=== PATIENT | male | born 1950 | race Caucasian/White ===

== ENCOUNTER → 2017-11-12 14:41 | Outpatient (CLI) | payer OTHER, SELFPAY ==
[2017-11-12 15:42] LABS: Add Manual Diff / Slide Review NO; Basophils Percent Auto 1.4 % (0-2); Eosinophils Percent Auto 7.2 % (2-4); Hematocrit 35.1 % (41-53); Hemoglobin 11.5 g/dL (13.5-17.5); Lymphocytes Percent Auto 29.8 % (25-40); Mean Corpuscular HGB Conc 32.7 % (30-36); Mean Corpuscular Hemoglobin 25.1 PG (26-34); Mean Corpuscular Volume 76.5 fL (80-100); Monocytes Percent Auto 8.5 % (3-14); Neutrophils Absolute Auto 2400 /uL (3000-5900); Neutrophils Percent Auto 53.1 % (50-75); Platelet Count 249 X10^3/uL (150-400); Red Blood Cell Count 4.59 X10^6/uL (4.5-5.9); Red Cell Distribution Width 14.1 % (11.6-14.8); White Blood Cell Count 4.6 X10^3/uL (4.5-11.0)
[2017-11-12 16:07] LABS: Alanine Aminotransferase 30 IU/L (21-72); Albumin 4.4 g/dL (3.5-5.0); Albumin Globulin Ratio 1.5 (1.0-2.8); Alkaline Phosphatase 74 U/L (38-126); Aspartate Aminotransferase 38 IU/L (17-59); BUN Creatinine Ratio 15.9 (6-22); Bilirubin Total 0.3 mg/dL (0.2-1.3); Blood Urea Nitrogen 27 mg/dL (9-20); Calcium 9.8 mg/dL (8.4-10.2); Carbon Dioxide 29 mmol/L (22-32); Chloride 102 mmol/L (98-107); Cholesterol 174 mg/dL (140-199); Estimated Glomerular Filt Rate 40.5 mL/min (>60); Glucose 88 mg/dL (80-110); HDL Cholesterol 43 mg/dL (40-60); HEMOLYSIS < 15 (0-50); LDL Cholesterol Calculated 84 mg/dL (<100); Potassium 5.2 mmol/L (3.4-5.1); Sodium 142 mmol/L (137-145); Total Protein 7.4 g/dL (6.3-8.2); Triglycerides 234 mg/dL (35-150)
[2017-11-12 16:38] LABS: Ferritin 6.2 ng/mL (17.9-464)
== END ==
PROVIDERS: PCP Family Medicine; Visit Provider Internal Medicine
DX: I10 Essential (primary) hypertension (principal); E78.2 Mixed hyperlipidemia
CPT/HCPCS: 36415; 80053; 80061; 82728; 85025

== ENCOUNTER → 2017-12-10 09:55 | Outpatient (CLI) | payer OTHER, SELFPAY ==
[2017-12-10 11:31] LABS: BUN Creatinine Ratio 18.6 (6-22); Blood Urea Nitrogen 26 mg/dL (9-20); Calcium 10.5 mg/dL (8.4-10.2); Carbon Dioxide 31 mmol/L (22-32); Chloride 95 mmol/L (98-107); Estimated Glomerular Filt Rate 50.7 mL/min (>60); Glucose 98 mg/dL (80-110); HEMOLYSIS < 15 (0-50); Potassium 4.2 mmol/L (3.4-5.1); Sodium 137 mmol/L (137-145)
== END ==
PROVIDERS: PCP Family Medicine; Visit Provider Internal Medicine
DX: N18.9 Chronic kidney disease, unspecified (principal); I10 Essential (primary) hypertension; M10.9 Gout, unspecified
CPT/HCPCS: 36415; 80048; 84550

== ENCOUNTER → 2017-12-20 09:25 | Outpatient (CLI) | payer OTHER, SELFPAY ==
--- NOTE | 2017-12-20 09:27 | DI.US.S_ITS ---
PROCEDURE: US RENAL COMPLETE INDICATIONS: chronic kidney disease TECHNIQUE: Real-time scanning was performed of the kidneys and bladder, with image documentation. COMPARISON: None. FINDINGS: Kidneys: Right kidney measures 14.2 cm long with cortical thickness of 2.1 cm. Right kidney demonstrates normal echotexture without hydronephrosis. Left kidney measures 15.6 cm long, demonstrating severe hydronephrosis. There is severe cortical thinning of the left kidney measuring 0.3 cm. No suspicious solid mass lesions. Bladder: Pre-void bladder volume is 1703 mL. Post-void residual is 1067 mL. Pre-void images demonstrate no intraluminal masses or stones. On pre-void images, neither ureteral jets are noted with color Doppler interrogation. (Of note, ureteral jets may not be detectable in up to 25% of cases due to insufficient differences in specific gravity between ureteral and bladder urine). Miscellaneous: No free pelvic fluid. IMPRESSION: 1. Severe left hydronephrosis. There is marked left renal cortical thinning suggesting chronic obstructive nephropathy. Recommend clinical correlation. Comparison to outside exams, if available, would be helpful. 2. Normal right kidney. 3. 1067 mL post void residual in urinary bladder. Dictated by: Tiffany Temple M.D. on 12/20/2017 at 10:34 Approved by: Tiffany Temple M.D. on 12/20/2017 at 10:39
== END ==
PROVIDERS: PCP Family Medicine; Visit Provider Internal Medicine
DX: N18.9 Chronic kidney disease, unspecified (principal); N13.30 Unspecified hydronephrosis
CPT/HCPCS: 76770

== ENCOUNTER 2017-12-20 12:18 | Emergency (ER) | payer OTHER, SELFPAY ==
[2017-12-20 12:26] VITALS: BP 186/73; PULSE 61; RESP 14; O2SAT 99; BMI 37.8
--- NOTE | 2017-12-20 12:33 | ED.MALEGU ---
HPI - Male Genitourinary General Chief complaint: Urogenital-Male Stated complaint: SENT FOR A CATHETER Time Seen by Provider: 12/20/17 12:30 Source: patient Mode of arrival: ambulatory Limitations: no limitations History of Present Illness HPI Narrative: Patient is a 67-year-old male sent over from his primary care doctor's office for evaluation of urinary retention. Patient states that he has been followed by his primary doctor for any increase in his creatinine. He had a renal and bladder ultrasound done today which was concerning for a obstruction and also left-sided hydro. Patient states that he feels like he empties his bladder. He does urinate frequently. He states this is worse when he lays down. No fevers. No dysuria. No back pain. Never had a kidney stone before. No prostate issues. Is on Flomax which he states did help his symptoms somewhat he has been on this for some time now. Related Data Home Medications Medication Instructions Recorded Confirmed prednisone 20 mg PO DAILY PRN 12/20/17 12/20/17 Previous Rx's Medication Instructions Recorded oxiconazole [Oxistat] 1 bharath TP BID #60 gm 03/07/16 atorvastatin [Lipitor] 80 mg PO HS #90 tab 03/29/17 gemfibrozil 600 mg PO BID #180 tab 03/29/17 allopurinol 100 mg tablet 100 mg PO .daily #60 tab 12/10/17 amlodipine 5 mg tablet 5 mg PO DAILY #60 tab 12/20/17 tamsulosin 0.4 mg capsule 0.4 mg PO BID #60 cap 12/20/17 Allergies Allergy/AdvReac Type Severity Reaction Status Date / Time No Known Drug Allergies Allergy Verified 12/20/17 11:18 Review of Systems Constitutional Denies fever(s) and Denies headache(s) ENT Ears, Nose, Mouth, and Throat: Denies headache(s) Cardiovascular Denies chest pain and Denies dyspnea Respiratory Denies dyspnea Gastrointestinal Gastrointestinal: Denies abdominal pain, Denies change in stool character, Denies diarrhea, Denies nausea and Denies vomiting Genitourinary Denies hematuria, Denies difficulty urinating, Denies genital lesions, Denies dysuria, Denies scrotal swelling, Denies testicular pain, Reports urinary frequency and Denies urinary incontinence Musculoskeletal Denies abnormal gait, Denies back pain, Denies myalgias and Denies arthralgias Integumentary/Breasts Denies pruritus and Denies rash Neurologic Denies abnormal gait, Denies confusion and Denies headache(s) Psychiatric Denies confusion Hematologic/Lymphatic Denies easy bleeding and Denies easy bruising [facility] Medical History Gout (Chronic ~1994) HTN (hypertension) (Chronic) Surgical History Anesthesia (Resolved) Meniscus degeneration (Resolved) History of carpal tunnel repair Status post hemorrhoidectomy Status post rotator cuff repair Family History Father Heart disease Hypertension Diabetes mellitus Grandfather Heart disease Grandfather Heart disease Grandmother No problems noted. Mother Cancer Grandmother No problems noted. Sister No problems noted. Social History marital status: household members: spouse Smoking Status: Former smoker alcohol intake: current substance use type: does not use Exam Initial Vital Signs Initial Vital Signs: Vital Signs Pulse Rate 61 12/20/17 12:26 Respiratory Rate 14 12/20/17 12:26 Blood Pressure 186/73 H 12/20/17 12:26 Pulse Oximetry 99 12/20/17 12:26 Const General: cooperative, healthy appearing, comfortable, well developed and No acute distress Orientation: alert, awake and oriented x3 HENMT Head: normal to inspection and normocephalic Resp Effort & Inspection: normal respiratory effort GI Inspection: non-distended Palpation: soft, No firm and No tender Back/Spine/Pelvis Back: No CVA tenderness Skin Lesions: no lesions Rashes: no rashes Neuro General: alert, awake and oriented x3 Extrem General: normal to inspection and capillary refill normal Psych Appearance: grossly normal and well kempt Course Orders Ordered: ED Orders 12/20/17 12:40 Urinalysis and Microscopic Stat 12/20/17 13:03 Basic Metabolic Panel Stat Complete Blood Count AUTO DIFF Stat Vital Signs - 8 hr 12/20/17 12:26 12/20/17 13:59 Pulse Rate 61 65 Respiratory Rate 14 14 Blood Pressure 186/73 H Blood Pressure [Left Arm] 147/80 H Pulse Oximetry 99 100 MDM - Male Genitourinary Lab Data Attestation: I reviewed the patient's lab results. Result diagrams: 12/20/17 13:03 12/20/17 13:03 Lab Results 12/20/17 12/20/17 12/20/17 Range/Units 12:40 13:03 13:03 WBC 4.1 L (4.5-11.0) X10^3/uL RBC 4.84 (4.5-5.9) X10^6/uL Hgb 11.9 L (13.5-17.5) g/dL Hct 35.8 L (41-53) % MCV 74.1 L (80-100) fL MCH 24.5 L (26-34) PG MCHC 33.1 (30-36) % RDW 14.2 (11.6-14.8) % Plt Count 259 (150-400) X10^3/uL Neut % (Auto) 57.2 (50-75) % Lymph % (Auto) 26.4 (25-40) % [place] % (Auto) 11.1 (3-14) % Eos % (Auto) 4.2 H (2-4) % Baso % (Auto) 1.1 (0-2) % Neut # (Auto) 2300 L (4860-3973) /uL Sodium 135 L (137-145) mmol/L Potassium 3.4 (3.4-5.1) mmol/L Chloride 94 L (98-107) mmol/L Carbon Dioxide 30 (22-32) mmol/L BUN 18 (9-20) mg/dL Creatinine 1.20 (0.66-1.25) mg/dL Estimated GFR > 60.0 (>60) mL/min BUN/Creatinine Ratio 15.0 (6-22) Glucose 93 (80-110) mg/dL Calcium 9.9 (8.4-10.2) mg/dL Urine Color Yellow Urine Appearance Clear Urine pH 6.0 (4.5-8.0) Ur Specific [place] <=1.005 (1.000-1.035) Urine Protein Negative (Negative) Urine Glucose (UA) Negative (Normal) g/dL Urine Ketones Negative (NEGATIVE) Urine Occult Blood Negative (Negative) Urine Nitrate Negative (Negative) Urine Bilirubin Negative (NEGATIVE) Urine Urobilinogen 0.2 (0.2) E.U./dL Ur Leukocyte Esterase Negative (NEGATIVE) Urine RBC None seen (0-5/HPF) Urine WBC None seen (0-5/HPF) Ur Squamous Epith Cells 0-1 /hpf Amorphous Sediment 1+ Urine Bacteria None seen (None) Ur Culture Indicated? Cult not indicated Micro UA Comment Not Reportable MDM Narrative Medical decision making narrative: Patient had a ultrasound performed earlier today that was ordered by his primary doctor. Review of those results show a left-sided hydronephrosis and a postvoid residual of greater than 1 L. patient had a Vergara placed prior to my evaluation with return of approximately 2.5 L of urine. No signs of an infection. His creatinine was 1.2 today which is improved. Patient states that his abdomen does feel less distended. No indication for antibiotics currently. Sent home with a leg bag. Patient is currently on Flomax. Informed him that he needed to contact his primary doctor to discuss the follow-up with Urology. Patient was given return precautions. He expressed understanding and agreement with plan. Discharge Plan Departure Patient Disposition: Home Clinical Impression: Urinary retention Discharge Date/Time: 12/20/17 14:12 Interventions: ED Discharge Assessment Last Done: 12/20/17 14:11 Instructions: How to Care for Your Vergara Catheter -- Male, DI for Urinary Retention in Men Activity Restrictions/Additional Instructions: Keep the Vergara in and take care of it like you were instructed to here in the emergency department. Recommend that you contact your primary care doctor upon discharge to discuss follow-up with Urology. He did have a urinalysis done today which could be consistent with a urinary tract infection however I feel that waiting until the culture is resulted until treating this is warranted. You will receive a call from our department if the culture is positive. Normally takes 2-3 days to get this result back. Return to the emergency department for any new or worsening symptoms. Continue all of your medications as directed. Prescriptions: No Action oxiconazole [Oxistat] 1 % cream 1 bharath TP BID Qty: 60 RF: 3 gemfibrozil 600 MG tablet 600 mg PO BID Qty: 180 RF: 3 atorvastatin [Lipitor] 80 MG tablet 80 mg PO HS Qty: 90 RF: 3 allopurinol 100 mg tablet 100 mg PO .daily Qty: 60 RF: 3 amlodipine 5 mg tablet 5 mg PO DAILY Qty: 60 RF: 0 tamsulosin [Flomax] 0.4 mg capsule 0.4 mg PO BID Qty: 60 RF: 0 prednisone 20 mg tablet 20 mg PO DAILY PRN (Reason: gout flare) RF: 0
[2017-12-20 12:51] LABS: Bacteria Urine None Seen; RBC Urine None Seen (0-5/HPF); WBC Urine None Seen (0-5/HPF)
[2017-12-20 12:53] LABS: Appearance Urine UA CLEAR; Bilirubin Urine UA NEGATIVE (NEGATIVE); Color Urine UA YELLOW; Glucose Urine UA NEGATIVE (Normal); Ketones Urine UA NEGATIVE (NEGATIVE); Leukocyte Esterase Urine UA NEGATIVE (NEGATIVE); Nitrite Urine UA Negative (Negative); Occult Blood Urine UA NEGATIVE (Negative); Protein Urine UA NEGATIVE (Negative); Specific Gravity Urine UA <=1.005 (1.000-1.035); Urobilinogen Urine UA 0.2 E.U./dL (0.2)
[2017-12-20 13:01] LABS: Amorphous Sediment Urine 1+; Culture Indicated Urine Cult Not Indicated; Squamous Epithelial Cell Urine 0-1 /HPF
--- NOTE | 2017-12-20 13:07 | PC.NURSE ---
Pt states he was seeing his provider for gout. Has h/o increased uric acid and decreasing renal functions so (by chance) provider had scheduled an abd / renal ultrasound. During that ultrasound he was found to have left hydro and significant urinary retention. Sent to ED for further work up. States he has felt urgency and inability to void x 1 year. Denies all pain.
[2017-12-20 13:11] LABS: Add Manual Diff / Slide Review NO; Basophils Percent Auto 1.1 % (0-2); Eosinophils Percent Auto 4.2 % (2-4); Hematocrit 35.8 % (41-53); Hemoglobin 11.9 g/dL (13.5-17.5); Lymphocytes Percent Auto 26.4 % (25-40); Mean Corpuscular HGB Conc 33.1 % (30-36); Mean Corpuscular Hemoglobin 24.5 PG (26-34); Mean Corpuscular Volume 74.1 fL (80-100); Monocytes Percent Auto 11.1 % (3-14); Neutrophils Absolute Auto 2300 /uL (3000-5900); Neutrophils Percent Auto 57.2 % (50-75); Platelet Count 259 X10^3/uL (150-400); Red Blood Cell Count 4.84 X10^6/uL (4.5-5.9); Red Cell Distribution Width 14.2 % (11.6-14.8); White Blood Cell Count 4.1 X10^3/uL (4.5-11.0)
[2017-12-20 13:25] LABS: Blood Urea Nitrogen 18 mg/dL (9-20); Calcium 9.9 mg/dL (8.4-10.2); Carbon Dioxide 30 mmol/L (22-32); Chloride 94 mmol/L (98-107); Estimated Glomerular Filt Rate > 60.0 mL/min (>60); Glucose 93 mg/dL (80-110); HEMOLYSIS < 15 (0-50); Potassium 3.4 mmol/L (3.4-5.1); Sodium 135 mmol/L (137-145)
[2017-12-20 13:59] VITALS: BP 147/80; PULSE 65; RESP 14; O2SAT 100
== END 2017-12-20 14:12 | disposition home or self-care (01) ==
PROVIDERS: Emergency Provider Emergency Medicine; PCP Family Medicine
DX: R33.9 Retention of urine, unspecified (principal)
CPT/HCPCS: 36591; 51701; 80048; 81001; 85025; 99283

== ENCOUNTER 2017-12-21 10:40 | Day surgery (SDC) | payer OTHER, SELFPAY ==
--- NOTE | 2017-12-21 | PATH_ITS ---
[facility] Accession Number: [id number] . 01 Material submitted: . GE JUNCTION . 02 Diagnosis: Gastroesophageal Junction, Biopsy: Squamocolumnar junctional mucosa with no diagnostic abnormality. Negative for specialized intestinal metaplasia, dysplasia or malignancy. [facility]/12/25/2017 . 02 Electronically signed: . Austin Burrell MD, PhD, Pathologist NPI- [id number] . 01 Gross description: . GE JUNCTION: Received in formalin are 4 fragment(s) of darling, soft tissue measuring 0.9 x 0.2 x 0.1 cm to 0.2 x 0.2 x 0.1 cm submitted entirely in 1 cassette(s) /TRC /TRC . 02 Pathologist provided ICD-10: R10.13 . 02 CPT . 915086 Performed at: 01 [facility] [address] [id number] MD Lupillo Pierre MD Phone: [phone] Performed at: 02 [facility] [id number] [place], [place] [id number] MD Ponce Saunders MD Phone: [phone]
[2017-12-21] MEDS: TETRACAINE/BENZOCAINE/BUTAMBEN (CETACAINE) BOTTLE 1 SPRAY TOP (01:18)
[2017-12-21 10:58] VITALS: BMI 36.5
[2017-12-21 11:05] VITALS: BP 147/81; PULSE 71; RESP 15; TEMP 37.1; O2SAT 98
[2017-12-21] MEDS: SODIUM CHLORIDE 0.9% 1,000 ML 200 ML IV (11:15)
--- NOTE | 2017-12-21 11:31 | SUR.PREOP ---
Pt ready for Endo Suite at this time. substance addiction coordinator database has been completed, consent has been signed, PIV in place with NS at TKO, and family is at bedside. Pt has had difficulty voiding, clark leg bag was placed yesterday and leg back is attached to right thigh. Pt will be keeping in place until he sees a urologist. Pt ready for OR at this time.
--- NOTE | 2017-12-21 11:46 | PM.PREOP ---
Pre-operative Note Interval Note Pre-op Check: Yes History & Physical Reviewed by Physician and Yes Exam Performed Changes: No ASA Class (for procedural sedation): III
--- NOTE | 2017-12-21 11:47 | PM.PREOP ---
Pre-operative Note Interval Note Pre-op Check: Yes History & Physical Reviewed by Physician and Yes Exam Performed Changes: No ASA Class (for procedural sedation): III
[2017-12-21] MEDS: LIDOCAINE 4% SOLN 50 ML 20 ML TOP (11:59)
[2017-12-21] MEDS: fentaNYL 250 MCG/5 ML INJ IV (12:08)
[2017-12-21] MEDS: MIDAZOLAM 5 MG/5 ML VIAL IV (12:09)
--- NOTE | 2017-12-21 12:32 | SUR.OPER ---
Addendum entered by Gerardo Mcdonald R.N. 12/21/17 12:37: Original Note: incomplete colonoscopy, reached the hepatic flexure
[2017-12-21 12:37] VITALS: BP 124/78; PULSE 67; RESP 12; TEMP 36.8; O2SAT 97
--- NOTE | 2017-12-21 12:39 | P.OP.ENDO_ITS ---
Operative Date/Time/Diagnoses Date of procedure: 12/21/17 Time of procedure: 12:32 Pre-op diagnosis: Anemia. Cause unclear. Post-op diagnosis: same (Possible mild inflammation of the GE junction. Incomplete colonoscopic exam. Reached the hepatic flexure.) Procedure & Clinicians Study performed: EGD with cold biopsy. Colonoscopy to the hepatic flexure. Incomplete exam. Same procedure as scheduled: Yes Indications: Determine cause of anemia Surgeon: Matthew Bansal Procedure Notes SCOAP/Timeout: Performed Procedure in detail: The patient had topical anesthetic applied to oropharynx. She was placed in left lateral decubitus position and underwent IV sedation directed by the surgeon consisting of fentanyl and Versed. A bite block was inserted and the scope was advanced through it into the esophagus. The esophagus was unremarkable. GE junction was noted at 40 cm from the incisors. There was some slight inflammation here.. The stomach insufflated well. There were no lesions seen in the body, antrum or at the incisura. The pyloric channel was [widely patent without edema]. The duodenum was unremarkable to the 4th part. The scope was brought back into the stomach and retroflexed. The proximal stomach was normal in appearance. There was no hiatal hernia seen from below.. The scope was straightened and brought out through the esophagus again. Random biopsy were taken at the GE junction. The scope was removed and the patient tolerated the procedure well. The patient was repositioned. The patient was placed in the left lateral decubitus position and underwent IV sedation directed by the surgeon consisting of fentanyl and Versed. Digital exam was[remarkable for the inability to feel as prostate well.]. The scope was inserted and advanced through the rectum into the sigmoid, descending, and transverse colon.[At somewhere near the hepatic flexure I simply ran out of scope. I withdrew the scope inserted a stiffener repositioned the patient apply pressure but still could never get beyond this point. I would run out of scope. After spending about 10 min at this 1 point and trying to get beyond it I decided to abandon the procedure. I ran out of options to get the scope to advance further]. The scope was gradually brought out. No Polyps were found. The scope ultimately slowly brought through the rectum. The appearance was[ normal]. The scope was removed and the patient tolerated the procedure well Scope withdrawal time: Not applicable Sedation minutes: 31 Findings: other findings (Incomplete exam) Specimen(s): none sent Complications: other (Cause of anemia not found.) Recommendations: Other recommendation (Colonoscopy to evaluate the remainder of the right colon.) Plan for aftercare: Follow-up with primary care provider and Urology etc Follow up: as needed Disposition: PACU
[2017-12-21 12:42] VITALS: BP 143/75; PULSE 76; RESP 12; O2SAT 98
[2017-12-21 12:47] VITALS: BP 129/76; PULSE 68; RESP 12; O2SAT 97
[2017-12-21 12:53] VITALS: BP 136/79; PULSE 64; RESP 12; O2SAT 97
== END 2017-12-21 13:13 | disposition home or self-care (01) ==
PROVIDERS: PCP Family Medicine; Visit Provider Specialist
PROC: 0DJ08ZZ Inspection of Upper Intestinal Tract, Via Natural or Artificial Opening Endoscopic (ICD-10-PCS; CPT 43235; principal; 2017-12-21 11:45)
PROC: 0DJD8ZZ Inspection of Lower Intestinal Tract, Via Natural or Artificial Opening Endoscopic (ICD-10-PCS; CPT 45378; 2017-12-21 11:45)
DX: D50.9 Iron deficiency anemia, unspecified (principal); Z86.010 Personal history of colon polyps; R33.9 Retention of urine, unspecified
CPT/HCPCS: 43239; 45378; 99152; 99153; J2250; J3010

== ENCOUNTER → 2018-01-03 09:42 | Outpatient (CLI) | payer OTHER, SELFPAY ==
--- NOTE | 2018-01-03 09:46 | DI.RAD.S_ITS ---
PROCEDURE: FL BARIUM ENEMA W AIR CONTRAST INDICATIONS: Anemia. Incomplete colonoscopy. Evaluate right colon COMPARISON: None. FINDINGS: KUB: Pre-procedural animal cruelty investigation supervisor film demonstrates a normal bowel gas pattern. No suspicious abdominal calcifications. Visualized solid organ contours are normal in size. No suspicious bony lesions. Colon: There is adequate air-contrast opacification from the rectum to the cecum. No strictures, ulcers, polyps, or masses are seen. Haustral folds are normal in thickness throughout. No diverticula. IMPRESSION: No mass or malignant appearing stricture is identified. No diverticulosis is found. Relatively prominently elongated colon, but the procedure allow visualization into the cecum and no underlying infection or neoplasm is suspected. Dictated by: Elkin Vo M.D. on 01/03/2018 at 12:08 Approved by: Elkin Vo M.D. on 01/03/2018 at 12:10
== END ==
PROVIDERS: PCP Family Medicine; Visit Provider Specialist
DX: D50.9 Iron deficiency anemia, unspecified (principal)
CPT/HCPCS: 74280

== ENCOUNTER → 2018-01-07 10:27 | Outpatient (CLI) | payer OTHER, SELFPAY ==
[2018-01-07 11:36] LABS: BUN Creatinine Ratio 14.2 (6-22); Blood Urea Nitrogen 17 mg/dL (9-20); Calcium 9.7 mg/dL (8.4-10.2); Carbon Dioxide 29 mmol/L (22-32); Chloride 101 mmol/L (98-107); Estimated Glomerular Filt Rate > 60.0 mL/min (>60); Glucose 89 mg/dL (80-110); HEMOLYSIS < 15 (0-50); Potassium 4.4 mmol/L (3.4-5.1); Sodium 141 mmol/L (137-145)
[2018-01-07 12:10] LABS: Uric Acid 7.8 mg/dL (3.5-8.5)
== END ==
PROVIDERS: PCP Family Medicine; Visit Provider Internal Medicine
DX: I10 Essential (primary) hypertension (principal); M10.9 Gout, unspecified
CPT/HCPCS: 36415; 80048; 84550

== ENCOUNTER → 2018-04-25 08:51 | Outpatient (CLI) | payer OTHER, SELFPAY ==
[2018-04-25 10:02] LABS: BUN Creatinine Ratio 14.3 (6-22); Blood Urea Nitrogen 20 mg/dL (9-20); Calcium 9.9 mg/dL (8.4-10.2); Carbon Dioxide 28 mmol/L (22-32); Chloride 102 mmol/L (98-107); Estimated Glomerular Filt Rate 50.5 mL/min (>60); Glucose 93 mg/dL (80-110); HEMOLYSIS < 15 (0-50); Potassium 4.6 mmol/L (3.4-5.1); Sodium 143 mmol/L (137-145); Triglycerides 249 mg/dL (35-150); Uric Acid 6.1 mg/dL (3.5-8.5)
== END ==
PROVIDERS: Internal Medicine; PCP Family Medicine; Visit Provider Family Medicine
DX: E78.1 Pure hyperglyceridemia (principal); I10 Essential (primary) hypertension; M10.9 Gout, unspecified
CPT/HCPCS: 36415; 80048; 84478; 84550

== ENCOUNTER → 2018-07-05 13:45 | Outpatient (CLI) | payer OTHER, SELFPAY ==
--- NOTE | 2018-07-05 13:47 | DI.US.S_ITS ---
PROCEDURE: US ABDOMEN LIMITED INDICATIONS: intermittrent LLQ pain TECHNIQUE: Real-time focused scanning was performed of the abdomen, with image documentation. COMPARISON: None. FINDINGS: Evaluation of the left lower quadrant of the abdomen/pelvis demonstrates no hernia or other sonographic abnormality. No inguinal hernia identified with Valsalva and cough maneuvers. No soft tissue edema or abscess identified. IMPRESSION: No sonographic abnormality identified in the left lower quadrant of the abdomen/pelvis Dictated by: Yvonne Baird MD, PhD on 07/08/2018 at 9:34 Approved by: Yvonne Baird MD, PhD on 07/08/2018 at 9:35
== END ==
PROVIDERS: PCP Family Medicine; Visit Provider Family Medicine
DX: R10.32 Left lower quadrant pain (principal)
CPT/HCPCS: 76700

== ENCOUNTER → 2018-11-08 10:44 | Outpatient (CLI) | payer OTHER, SELFPAY ==
[2018-11-08 12:41] LABS: Alanine Aminotransferase 49 IU/L (21-72); Albumin 4.7 g/dL (3.5-5.0); Albumin Globulin Ratio 1.7 (1.0-2.8); Alkaline Phosphatase 73 U/L (38-126); Aspartate Aminotransferase 38 IU/L (17-59); Bilirubin Total 0.7 mg/dL (0.2-1.3); Blood Urea Nitrogen 21 mg/dL (9-20); Carbon Dioxide 28 mmol/L (22-32); Chloride 97 mmol/L (98-107); Estimated Glomerular Filt Rate 46.7 mL/min (>60); Globulin 2.8 g/dL (1.7-4.1); Glucose 86 mg/dL (80-110); HEMOLYSIS < 15 (0-50); Potassium 4.9 mmol/L (3.4-5.1); Sodium 136 mmol/L (137-145); Total Protein 7.5 g/dL (6.3-8.2)
== END ==
PROVIDERS: Family Provider Family Medicine; PCP Family Medicine; Visit Provider Hospitalist
DX: R10.9 Unspecified abdominal pain (principal)
CPT/HCPCS: 36415; 80053

== ENCOUNTER → 2018-12-18 07:12 | Outpatient (CLI) | payer OTHER, SELFPAY ==
[2018-12-18 08:19] LABS: Add Manual Diff / Slide Review NO; Basophils Absolute Auto 0 /uL (0-100); Basophils Percent Auto 1.2 % (0-2); Eosinophils Absolute Auto 300 /uL (0-450); Eosinophils Percent Auto 6.6 % (2-4); Hematocrit 41.8 % (41-53); Hemoglobin 13.9 g/dL (13.5-17.5); Lymphocytes Absolute Auto 1300 /uL (1100-4500); Lymphocytes Percent Auto 30.9 % (25-40); Mean Corpuscular HGB Conc 33.3 % (30-36); Mean Corpuscular Hemoglobin 27.1 PG (26-34); Mean Corpuscular Volume 81.3 fL (80-100); Monocytes Absolute Auto 400 /uL (0-900); Monocytes Percent Auto 9.8 % (3-14); Neutrophils Absolute Auto 2100 /uL (1500-7000); Neutrophils Percent Auto 51.5 % (50-75); Platelet Count 201 X10^3/uL (150-400); Red Blood Cell Count 5.14 X10^6/uL (4.5-5.9); Red Cell Distribution Width 16.1 % (11.6-14.8); White Blood Cell Count 4.1 X10^3/uL (4.5-11.0)
[2018-12-18 08:29] LABS: Alanine Aminotransferase 66 IU/L (21-72); Albumin 4.7 g/dL (3.5-5.0); Albumin Globulin Ratio 1.5 (1.0-2.8); Alkaline Phosphatase 63 U/L (38-126); Aspartate Aminotransferase 52 IU/L (17-59); BUN Creatinine Ratio 15.6 (6-22); Bilirubin Total 0.6 mg/dL (0.2-1.3); Blood Urea Nitrogen 25 mg/dL (9-20); Calcium 9.9 mg/dL (8.4-10.2); Carbon Dioxide 28 mmol/L (22-32); Chloride 99 mmol/L (98-107); Cholesterol 177 mg/dL (140-199); Estimated Glomerular Filt Rate 43.3 mL/min (>60); Globulin 3.2 g/dL (1.7-4.1); Glucose 99 mg/dL (80-110); HDL Cholesterol 37 mg/dL (40-60); HEMOLYSIS 17 (0-50); LDL Cholesterol Calculated 81 mg/dL (<100); Potassium 4.2 mmol/L (3.4-5.1); Sodium 138 mmol/L (137-145); Total Protein 7.9 g/dL (6.3-8.2); Triglycerides 294 mg/dL (35-150); Uric Acid 7.5 mg/dL (3.5-8.5)
[2018-12-18 08:58] LABS: Prostate Specific Antigen Scrn 0.092 ng/mL (0.1-4.0)
[2018-12-18 09:09] LABS: Thyroid Stimulating Hormone 1.78 uIU/mL (0.47-4.68)
== END ==
PROVIDERS: Family Provider Family Medicine; PCP Family Medicine; Visit Provider Family Medicine
DX: E78.1 Pure hyperglyceridemia (principal)
CPT/HCPCS: 36415; 80053; 80061; 84443; 84550; 85025; G0103

== ENCOUNTER → 2019-01-20 10:24 | Outpatient (CLI) | payer OTHER, SELFPAY ==
--- NOTE | 2019-01-20 10:28 | DI.RAD.S_ITS ---
PROCEDURE: XR HIP W PEL IF DONE LT MIN 4V INDICATIONS: deep hip and groin pain TECHNIQUE: AP pelvis with lateral view(s) of the bilateral hip(s). COMPARISON: None. FINDINGS: Bones: No fractures or dislocations. Pelvic ring appears intact. Mild bilateral hip joint osteoarthritic changes are seen. No evidence of avascular necrosis. No suspicious bony lesions. Soft tissues: The visualized bowel gas pattern is normal. No suspicious soft tissue calcifications. 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 Dictated by: Micheal Fraga M.D. on 01/20/2019 at 11:22 Approved by: Micheal Fraga M.D. on 01/20/2019 at 11:23
== END ==
PROVIDERS: Family Provider Family Medicine; PCP Family Medicine; Visit Provider Family Medicine
DX: M25.551 Pain in right hip (principal); M25.552 Pain in left hip; M16.0 Bilateral primary osteoarthritis of hip; R10.30 Lower abdominal pain, unspecified
CPT/HCPCS: 73522

== ENCOUNTER → 2019-01-28 17:33 | Outpatient (CLI) | payer OTHER, SELFPAY ==
--- NOTE | 2019-01-28 17:39 | DI.MRI.S_ITS ---
PROCEDURE: MR HIP LT WO CON INDICATIONS: deep hip pain TECHNIQUE: Noncontrast coronal T1 spin echo and STIR through the bony pelvis. Coronal and axial T2 fast spin echo with fat saturation, sagittal T1 spin echo, and oblique axial T2 fast spin echo with fat saturation through the hip. COMPARISON: None. FINDINGS: Image quality: Excellent. Bones and joints: There is mild symmetric appearing bilateral hip joint osteoarthritis. No fracture or dislocation. No intraosseous lesions. No avascular necrosis of the femoral heads. The visualized lower lumbar spine appears normally aligned. Tendons and ligaments: There is distal left gluteus medius and minimus tendinosis and low-grade partial-thickness tearing at their insertions on greater trochanter, without associated muscle atrophy. The nearby proximal iliotibial band also appears intact. The iliopsoas tendon appears intact, without adjacent bursal fluid collections or evidence for impingement syndrome. The origin of the hamstring tendon is intact at the ischial tuberosity, as well as the associated sacrotuberous ligament. The straight and reflected heads of the rectus femoris muscle origin appear intact, as well as the conjoint tendon. The ligamentum teres appears intact where visualized. Labrum and cartilage: There is signal abnormality and contour irregularity involving superior anterior left labrum concerning for a labral tear. Thinning of articulating cartilage is femoral head is also seen. The alpha angle of the femur is within normal limits at less than 55 degrees. Soft tissues: Visualized muscles demonstrate normal bulk and internal signal. Quadratus femoris muscle demonstrates no internal edema to suggest ischiofemoral impingement. The proximal sciatic neurovascular bundle appears normal adjacent to the hamstring tendons. No free pelvic fluid. Bladder wall thickness is normal. Genitourinary structures and bowel loops appear normal where visualized. IMPRESSION: 1. 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 No fracture or dislocation. No marrow edema. No evidence of avascular necrosis of femoral heads. 2. Distal left gluteus medius and minimus tendinosis and low-grade partial-thickness tear. 3. Suggestion of superior anterior left hip labral tear. Dictated by: Micheal Fraga M.D. on 01/29/2019 at 9:00 Approved by: Micheal Fraga M.D. on 01/29/2019 at 9:15
== END ==
PROVIDERS: Family Provider Family Medicine; PCP Family Medicine; Visit Provider Family Medicine
DX: M25.552 Pain in left hip (principal); M16.0 Bilateral primary osteoarthritis of hip; S76.012A Strain of muscle, fascia and tendon of left hip, initial encounter
CPT/HCPCS: 73721

== ENCOUNTER → 2019-02-04 08:44 | Outpatient (CLI) | payer OTHER, SELFPAY ==
[2019-02-04 09:36] LABS: Erythrocyte Sedimentation Rate 4 MM/HR (0-15)
== END ==
PROVIDERS: PCP Family Medicine; Visit Provider Family Medicine
DX: M35.3 Polymyalgia rheumatica (principal)
CPT/HCPCS: 36415; 85651

== ENCOUNTER 2019-02-06 21:28 | Emergency (ER) | payer OTHER, SELFPAY ==
[2019-02-06 21:37] VITALS: BP 160/97; PULSE 67; RESP 14; TEMP 36.5; O2SAT 97; BMI 36.5
[2019-02-06] MEDS: KETOROLAC 60 MG/2 ML VIAL 30 MG IM (22:38)
--- NOTE | 2019-02-06 23:42 | ED_ITS ---
HPI - Extremity Problem General Chief complaint: Extremity Problem,Nontraumatic Stated complaint: rt hip pain Time Seen by Provider: 02/06/19 23:02 Source: patient Mode of arrival: Ambulatory Limitations: no limitations History of Present Illness HPI Narrative: 68-year-old male comes emergency department with right hip pain. patient has had chronic right hip issues. Patient has had these problems for a little while. He actually see Dr. Razo on Sunday Coretta was evaluated his hip was taken through for range of motion he states that when he came is about 2/3 and when he left his still about a 2/3 and then over the subsequent 48 hours and increasing right hip pain. He states it is hip. It does not seem to be from his back, does not seem to radiate down. If he has taken through range of motion passively by someone else he does really have much pain but if he tries to flex or rotate his hip himself it is painful. Particularly with internal rotation. Her patient states it has been increasing in intensity. He has tried Tylenol with minimal improvement. No fevers, no chills, no chest pain or shortness of breath, no abdominal pain. No rashes or skin changes. He has not appreciated any redness swelling or changes over the hip itself. Patient states maybe a little bit of tingling just adjacent to the hip but nothing extending down the leg. Pain does not extend down the leg. He has not had any skin changes were color changes. He does take medication for gout, hypertension, dyslipidemia and prostate. He has had a TURP. Dr. Razo is his orthopedic surgeon and Dr. Dennison is his primary care. Related Data Home Medications Medication Instructions Recorded Confirmed finasteride 5 mg tablet 5 mg PO DAILY 01/07/18 11/08/18 Previous Rx's Medication Instructions Recorded oxiconazole [Oxistat] 1 bharath TP BID #60 gm 03/07/16 atorvastatin 80 mg tablet 80 mg PO HS #90 tab 05/24/18 tamsulosin 0.4 mg capsule 0.4 mg PO BID #60 cap 10/03/18 allopurinol 300 mg tablet 300 mg PO DAILY #90 tab 01/20/19 fenofibrate 160 mg tablet 160 mg PO DAILY #90 tab 01/20/19 lisinopril 20 mg tablet 20 mg PO DAILY #90 tab 10/03/19 colchicine 0.6 mg capsule 0.6 mg PO BID #180 cap 02/03/19 diazepam [Valium] 2 mg PO TID PRN #10 tab 02/07/19 hydrocodone-acetaminophen [Burbank] 1 tab PO Q6H PRN #10 tab 02/07/19 Allergies Allergy/AdvReac Type Severity Reaction Status Date / Time No Known Drug Allergies Allergy Verified 02/06/19 21:37 Review of Systems Review of Systems ROS Unobtainable: All systems reviewed & are unremarkable except as noted in HPI and below PFSH Medical History Gout (Chronic ~1994) HTN (hypertension) (Chronic) Surgical History Anesthesia (Resolved) History of carpal tunnel repair Meniscus degeneration (Resolved) Status post hemorrhoidectomy Status post rotator cuff repair Family History Father Heart disease Hypertension Diabetes mellitus Grandfather Heart disease Grandfather Heart disease Grandmother No problems noted. Mother Cancer Grandmother No problems noted. Sister No problems noted. Social History marital status: household members: spouse Smoking Status: Former smoker alcohol intake: current substance use type: does not use Family History Father Heart disease Hypertension Diabetes mellitus Grandfather Heart disease Grandfather Heart disease Grandmother No problems noted. Mother Cancer Grandmother No problems noted. Sister No problems noted. Social History marital status: household members: spouse Smoking Status: Former smoker alcohol intake: current substance use type: does not use Exam Narrative Exam Narrative: GENERAL: Alert and oriented x three, obese male in moderate distress. HEENT: Head normocephalic, atraumatic, EOMI, pupils reactive, face symmetric, moist mucous membranes NECK: Supple, full range of motion CARDIOVASCULAR: Regular rate and rhythm without murmurs, rubs or gallops. RESPIRATORY: Breath sounds equal bilaterally, no wheezes rales or rhonchi. ABDOMEN: Soft, nontender. Normoactive bowel sounds all 4 quadrants. No guarding or rebound, rigidity, no mass : No CVA tenderness EXTREMITIES: Normal range of motion, patient does not have pain with passive range of motion of the hip including flexion, internal external rotation. I am not able to reproduce pain with palpation. There is no redness or swelling. patient has 2+ femoral pulse positive pulses bilateral lower extremities. patient has normal coloration of skin. No clubbing or edema. Neurovascularly intact. NEUROLOGICAL: Cranial nerves II through XII grossly intact. Moving all extremities SKIN: Warm, dry, no petechiae, no rashes or lesions. Initial Vital Signs Initial Vital Signs: Vital Signs Temperature 97.7 F 02/06/19 21:37 Pulse Rate 67 02/06/19 21:37 Respiratory Rate 14 02/06/19 21:37 Blood Pressure 160/97 H 02/06/19 21:37 Pulse Oximetry 97 02/06/19 21:37 Course Orders Ordered: ED Orders 02/06/19 23:59 XR hip w pel if done RT 2V Stat Discontinued Medications Hydrocodone Bitart/Acetaminophen (Vicodin Prepack) 1 bottle MISC SEEINSTR ONE Stop: 02/07/19 02:07 Last Admin: 02/07/19 02:11 Dose: 1 bottle Documented by: AUGIEOTEM Diazepam (Valium) 5 mg PO NOW ONE Stop: 02/07/19 00:01 Last Admin: 02/07/19 00:16 Dose: 5 mg Documented by: KBROTEM Hydromorphone HCl (Dilaudid) 0.5 mg IM NOW ONE Stop: 02/07/19 00:29 Last Admin: 02/07/19 00:32 Dose: 0.5 mg Documented by: KBROTEM Ketorolac Tromethamine (Toradol) 30 mg IM NOW ONE Stop: 02/06/19 22:36 Last Admin: 02/06/19 22:38 Dose: 30 mg Documented by: HFARRINGTO Vital Signs Vital signs: Vital Signs - 8 hr 02/07/19 01:55 Pulse Rate 62 Respiratory Rate 15 Blood Pressure [Right Arm] 127/67 Pulse Oximetry [address] [facility] - Extremity (Nontraumatic) Imaging Data Right hip x-ray: My impression: nap, compared with prior from 01/20/[address] [facility] Narrative Medical decision making narrative: Discussed with patient unclear but I suspect that he does have some sort orthopedic issue that is causing his pain. any Sami exam findings of be consistent with gout, septic joint, DVT or arterial issue. His pain is not from his back but is truly seems to be in his hip. He had some improvement with Toradol. Was given a muscle relaxant. Patient had x-ray imaging with seem to exacerbate of symptoms and was given 0.5 of Dilaudid. Patient is much more comfortable on evaluation. Plan for follow-up with primary care. Patient's x-ray does not show any acute changes. Discharge Plan Departure Patient Disposition: Home Clinical Impression: Hip pain, right Discharge Date/Time: 02/07/19 02:01 Instructions: DI for Hip Pain Activity Restrictions/Additional Instructions: Follow-up with Dr. Dennison or Dr. Razo for repeat evaluation and possibly MRI. I would recommend using crutches or a walker. Take medication as prescribed, this medication can make you sleepy do not drive, perform hazardous activities or make any major decisions while taking it. Return to the emergency department for fevers greater than 100.4 F, new swelling, redness or skin changes to the leg or hip, new weakness, numbness, los s of sensation, pale or blue leg or other new or concerning symptoms. Prescriptions: New hydrocodone-acetaminophen [Burbank] 5-325 mg tablet 1 tab PO Q6H PRN (Reason: pain) Qty: 10 RF: 0 diazepam [Valium] 2 mg tablet 2 mg PO TID PRN (Reason: muscle spasm) Qty: 10 RF: 0 No Action oxiconazole [Oxistat] 1 % cream 1 bharath TP BID Qty: 60 RF: 3 atorvastatin [Lipitor] 80 mg tablet 80 mg PO HS Qty: 90 RF: 3 tamsulosin [Flomax] 0.4 mg capsule 0.4 mg PO BID Qty: 60 RF: 3 allopurinol 300 mg tablet 300 mg PO DAILY Qty: 90 RF: 1 fenofibrate 160 mg tablet 160 mg PO DAILY Qty: 90 RF: 1 lisinopril 20 mg tablet 20 mg PO DAILY Qty: 90 RF: 2 colchicine 0.6 mg capsule 0.6 mg PO BID Qty: 180 RF: 1 finasteride 5 mg tablet 5 mg PO DAILY RF: 0 Referrals: Shaquille Dennison MD [Primary Care Provider] -
--- NOTE | 2019-02-06 23:59 | DI.RAD.S_ITS ---
PROCEDURE: XR HIP W PEL IF DONE RT 2V INDICATIONS: hip pain, acute on chronic TECHNIQUE: AP pelvis with lateral view(s) of the right hip(s). COMPARISON: [facility], MR, MR HIP LT WO CON, 01/28/2019, 17:48. FINDINGS: Bones: No fractures or dislocations. Pelvic ring appears intact. No suspicious bony lesions. There is mild symmetric degenerative joint disease in hips and sacroiliac joints. Soft tissues: The visualized bowel gas pattern is normal. Calcification over the greater trochanters may be secondary to calcific bursitis or tendinitis. IMPRESSION: 1. 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 2. Calcific bursitis or tendinitis. Dictated by: Tiffany Temple M.D. on 02/07/2019 at 9:11 Approved by: Tiffany Temple M.D. on 02/07/2019 at 9:14
[2019-02-07] MEDS: diazePAM 5 MG TABLET PO (00:16)
[2019-02-07] MEDS: HYDROMORPHONE 1 MG INJ 0.5 MG IM (00:32)
[2019-02-07 01:55] VITALS: BP 127/67; PULSE 62; RESP 15; O2SAT 97
[2019-02-07] MEDS: HYDROCODONE/ACET 5/325 PREPACK 1 BOTTLE MISC (02:11)
== END 2019-02-07 02:01 | disposition home or self-care (01) ==
PROVIDERS: Emergency Provider Emergency Medicine; Family Provider Family Medicine; PCP Family Medicine
DX: M25.551 Pain in right hip (principal)
CPT/HCPCS: 73502; 96372; 99283; J1170; J1885

== ENCOUNTER → 2019-03-11 12:02 | Outpatient (CLI) | payer OTHER, SELFPAY ==
--- NOTE | 2019-03-11 | DI.US.S_ITS ---
PROCEDURE: US RENAL COMPLETE INDICATIONS: RETENTION OF URINE, UNSPECIFIED TECHNIQUE: Real-time scanning was performed of the kidneys and bladder, with image documentation. COMPARISON: Merged With [facility], , RENAL COMPLETE, 12/20/2017, 10:04. Merged With [facility], , US ABDOMEN LIMITED, 07/05/2018, 14:13. FINDINGS: Kidneys: Kidneys are normal in size. Right kidney measures 12.9 cm long; left kidney measures 9.2 cm long. Right renal cortical thickness is 1.1 cm; left renal cortical thickness is 0.9 cm. Renal cortical echotexture is normal. No hydronephrosis or nephrolithiasis. No suspicious solid mass lesions. Lobular appearance of the left renal cortex. There is prominence of the left extrarenal pelvis. Bladder: Pre-void bladder volume is 763 mL. Post-void residual is 317 mL. Pre-void images demonstrate no intraluminal masses or stones. On pre-void images, bilateral ureteral jets are noted with color Doppler interrogation. (Of note, ureteral jets may not be detectable in up to 25% of cases due to insufficient differences in specific gravity between ureteral and bladder urine). Multiple small bladder diverticulum. Multiple bladder wall trabeculations. Miscellaneous: No free pelvic fluid. IMPRESSION: 1. Lobular appearance of the left kidney and left renal cortical thinning. 2. Significant postvoid residual estimated at 317 cc. 3. Bladder diverticulum and trabeculation suggesting chronic bladder outlet obstruction. Correlate clinically. Dictated by: Denny LUBIN Interpreted: Joselin Kincaid MD on 03/11/2019 at 13:20 Approved by: Joselin Kincaid M.D. on 03/11/2019 at 14:08
== END ==
PROVIDERS: Family Provider Family Medicine; PCP Family Medicine; Visit Provider Urology
DX: R33.9 Retention of urine, unspecified (principal); N32.3 Diverticulum of bladder; N32.89 Other specified disorders of bladder
CPT/HCPCS: 76770

== ENCOUNTER 2019-06-06 13:49 | Emergency (ER) | payer OTHER, SELFPAY ==
[2019-06-06 14:07] VITALS: BP 163/86; PULSE 66; RESP 14; TEMP 36.8; O2SAT 99
--- NOTE | 2019-06-06 14:24 | ED.TRAUMA ---
HPI - Trauma General Chief Complaint: Trauma Stated Complaint: Fall Time Seen by Provider: 06/06/19 14:07 Source: patient and EMS Mode of arrival: EMS Limitations: no limitations History of Present Illness HPI narrative: This is a 69-year-old male who had a fall. 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 Patient states he was not on the highest level probably fell about 3 or 4 ft backwards onto his head. He states he remembers hitting the ground he did not have loss of consciousness. He states he was dazed felt dizzy for several minutes. After about a minute or 2 he got up kind of hung across the back of the truck for several minutes feeling dizzy and then was able to go and sit in the seated the truck. He was in able to walk inside and get help from 1 of his coworkers. Patient states he does not have a headache currently. He states he has sometimes muscle spasm in his neck and shoulder region but denies any pain with motion. Patient denies any shortness of breath. He denies any dizziness currently. No nausea or vomiting. He states he sort of saw stars initially but no vision changes currently. He denies any back pain. No numbness swing miss or tingling. Patient denies any GI or urinary symptoms. He takes medication for gout, dyslipidemia, prostate and hypertension. He denies any surgeries. He denies any allergies. No tobacco, alcohol or illicit. Patient states tetanus is up-to-date. Related Data Home Medications Medication Instructions Recorded Confirmed finasteride 5 mg tablet 5 mg PO DAILY 01/07/18 06/06/19 atorvastatin [Lipitor] 80 mg PO BEDTIME 06/06/19 06/06/19 Previous Rx's Medication Instructions Recorded oxiconazole [Oxistat] 1 bharath TP BID #60 gm 03/07/16 tamsulosin 0.4 mg capsule 0.4 mg PO BID #60 cap 10/03/18 allopurinol 300 mg tablet 300 mg PO DAILY #90 tab 01/20/19 fenofibrate 160 mg tablet 160 mg PO DAILY #90 tab 01/20/19 lisinopril 20 mg tablet 20 mg PO DAILY #90 tab 01/30/19 colchicine 0.6 mg capsule 0.6 mg PO BID #180 cap 02/03/19 Allergies Allergy/AdvReac Type Severity Reaction Status Date / Time No Known Drug Allergies Allergy Verified 04/28/19 09:04 Review of Systems Review of Systems ROS Unobtainable: All systems reviewed & are unremarkable except as noted in HPI and below Patient History Social History marital status: household members: spouse Smoking Status: Former smoker alcohol intake: current substance use type: does not use Smoking Status: Former smoker alcohol intake frequency: holidays/special occasions only Substance Use Type: does not use Exam Narrative Exam Narrative: GEN: C-collar, backboard on arrival Patient appears in mild distress. HEAD: Patient has a large hematoma on the posterior scalp that is about 6 x 7 cm in size, there is a laceration over the middle of the hematoma that is about 3.2 cm in length into the subcutaneous,no galeal involvement or exposure noted. There is some mild diffuse but no active bleeding, no raccoon/Lugo sign. NECK: Nontender, painless range of motion, trachea midline Negative Nexus criteria, there is no mid line tenderness, distracting injury, altered mental status, neuro deficit, recent EtOH. EYES: PERRLA, EOMI ENT: External inspection normal, trachea is midline, TM's are normal no hemotypanum, Nares are clear, no septal hematoma, no dental or oral injury, airway is normal and with normal occlusion, No bony tenderness RESP: Chest is nontender and has symmetric movement, no ecchymosis, breath sounds are normal no crackles, wheezes or rales CVS: Heart sounds are normal, no murmur noted, No JVD. ABG/GI: Nontender, soft, normal bowel sounds, no distention, no organomegaly, pelvic rock is negative NEURO: Oriented AOx3, neuro is grossly intact, sensation and motor is normal all 4 extremities moving, cranial nerves II through XII are intact, GCS is 15 PSYCH: Normal mood and affect SKIN: Intact, warm and dry, no crepitus and without decubitus BACK: No CVA tenderness, no vertebral tenderness, no step-off's, no crepitus EXT: Atraumatic, hips are nontender, no pedal edema, normal color and temperature, normal range of motion of extremities with normal tendon exam, 2+ pulses in all four extremities Initial Vital Signs Initial Vital Signs: Vital Signs Temperature 98.2 F 06/06/19 14:07 Pulse Rate 66 06/06/19 14:07 Respiratory Rate 14 06/06/19 14:07 Blood Pressure 163/86 H 06/06/19 14:07 Pulse Oximetry 99 06/06/19 14:07 Procedures Laceration Repair Laceration 1: Site: scalp Size (cm): 3.2 Description: linear Depth: simple, single layer Local Anesthetic: lidocaine 1% Amount of anesthesia used (mL): 4.5 Pre-repair: wound explored, irrigated extensively and deep structures intact Skin layer closed with: redd Number of sutures: 5 Scores GCS [place] coma scale eye opening: Spontaneous [place] coma scale verbal response: Orientated [place] coma scale motor response: Obey commands [place] coma scale total score: 15 Course Orders Ordered: ED Orders 06/06/19 14:35 CT cervical spine wo con Stat CT head/brain wo con Stat Discontinued Medications Lidocaine/Sodium Bicarbonate (Buffered Lidocaine 10 Ml Syr) 10 ml INJ NOW ONE Stop: 06/06/19 16:10 Vital Signs Vital signs: Vital Signs - 8 hr 06/06/19 14:07 06/06/19 17:22 Temperature 98.2 F Pulse Rate 66 66 Respiratory Rate 14 14 Blood Pressure 163/86 H 144/82 H Pulse Oximetry 99 99 MDM - Trauma Imaging Data CT scan - head: Radiologist's Impression: [place] [address] CT Scan Report Signed Patient: Lupillo Barrera JMR#: [id number] : [id number]:[id number] Age/Sex: 69 / MDate of Service: 06/06/19 Loc: ED Accession Number: [id number] Procedure: CT head/brain wo con Ordering Provider: Enedina Marion D.O. PROCEDURE: CT HEAD/BRAIN WO CON INDICATIONS: fell backwards, hit head, large hematoma, no LOC TECHNIQUE: Noncontrast 4.5 mm thick angled axial sections acquired from the foramen magnum to the vertex, with coronal and sagittal reformats. For radiation dose reduction, the following was used: automated exposure control, adjustment of mA and/or kV according to patient size. COMPARISON: None. FINDINGS: Image quality: Diagnostic. CSF spaces: Basal cisterns are patent. No extra-axial fluid collections. Ventricles are normal in size and shape. Brain: No midline shift. No intracranial masses or hemorrhage. Buckner-white matter interface is normal. Skull and face: There is a large subgaleal/scalp hematoma identified along the left posterior parietal region without an underlying calvarial fracture. Calvarium and visualized facial bones are intact, without suspicious lesions. Sinuses: Minimal mucosal thickening is identified involving the bilateral inferior maxillary sinuses and of the anterior ethmoid air cells. Otherwise, the imaged paranasal sinuses and mastoid air cells are clear. IMPRESSION: 1. No acute intracranial hemorrhage. 2. Prominent scalp hematoma. No underlying fractures. 2. Mild paranasal sinus disease. Dictated by: Vimal Carrero M.D. on 06/06/2019 at 14:08 Approved by: Vimal Carrero M.D. on 06/06/2019 at 14:12 CT Cspine: Radiologist's Impression: [place] [address] CT Scan Report Signed Patient: Lupillo Barrera R#: [id number] : [id number]:[id number] Age/Sex: 69 / MDate of Service: 06/06/19 Loc: ED Accession Number: [id number] Procedure: CT cervical spine wo con Ordering Provider: Enedina Marion D.O. PROCEDURE: CT CERVICAL SPINE WO CON INDICATIONS: fall, nonspecific neck pain TECHNIQUE: Noncontrast 3 mm thick sections acquired from the skull base to the T4 level. Sagittal and coronal reformats were then constructed. For radiation dose reduction, the following was used: automated exposure control, adjustment of mA and/or kV according to patient size. COMPARISON: None. FINDINGS: Image quality: Diagnostic. Bones: The craniocervical and atlantoaxial joints are well-maintained. The odontoid is intact. The vertebral body heights and prevertebral soft tissues are within normal limits throughout the cervical spine without evidence to suggest acute compression fracture. No other fractures are evident within the cervical spine. The odontoid appears intact. The bone mineralization is within normal limits. [id number] degenerative changes of the cervical spine are most pronounced at the atlantoaxial joint and at the levels of C4-5 and C5-6. There is disc height loss and disc osteophyte complexes with mild facet arthrosis at the levels of C4-5 and C5-6. Soft tissues: No prevertebral soft tissue swelling. The imaged lung apices are clear. Imaged portions of the mediastinum are unremarkable. Otherwise, the remainder of the imaged soft tissues of the neck are within normal limits. IMPRESSION: 1. No acute fractures of the cervical spine. 2. [id number] degenerative changes of the cervical spine. Dictated by: Vimal Carrero M.D. on 06/06/2019 at 14:12 Approved by: Vimal Carrero M.D. on 06/06/2019 at 14:14 [facility] Narrative Medical decision making narrative: Cervical collar was cleared after imaging. Patient has quite a large hematoma so head CT was ordered along with C-spine is patient has diffuse neck pain. Patient does show no acute findings. Laceration was repaired with redd which patient tolerated well verbally consented 2. Patient's tetanus was update. He likely has some mild concussive symptoms and given anticipatory guidance. He was cleared to return to work on Sunday if he is asymptomatic and recommended to follow-up if he is having any continued or worsening symptoms. We did discuss strict return precautions. Patient was able to ambulate department without issue. Discharge Plan Departure Patient Disposition: Home Clinical Impression: Laceration of scalp, Hematoma of scalp, Concussion Discharge Date/Time: 06/06/19 17:24 Instructions: DI for Concussion, DI for Laceration Repair -- Redd Activity Restrictions/Additional Instructions: Follow-up in the next 7-10 days for recheck and for removal of your redd. Call for an appointment. You may take ibuprofen and/or Tylenol as needed for pain. Wound Care: Keep wound(s) clean and dry. Wash daily with soap and water only. Do not use over the counter products (alcohol or peroxide)on the wounds unless instructed by a physician. If wound condition worsens (increased/expanding redness, developing fluid blisters, or worsening pain), either contact your doctor for an urgent re-assessment , or return to the Emergency Department. Return to the Emergency Department for any new or worsening symptoms. Return to the ED, urgent care, or vist a primary care doctor for removal or suture or redd in 7-10 days. Return if fever greater than 100.4 Fahrenheit, increased swelling, increasing pain or worsening symptoms such as increased discharge or spreading redness. New confusion, altered mental status, severe headaches, new neck or back pain, dizziness, passing out, lightheadedness, persistent vomiting, new numbness, weakness or tingling, new chest pain shortness of breath or other new or concerning symptoms. Prescriptions: No Action oxiconazole [Oxistat] 1 % cream 1 bharath TP BID Qty: 60 RF: 3 tamsulosin [Flomax] 0.4 mg capsule 0.4 mg PO BID Qty: 60 RF: 3 allopurinol 300 mg tablet 300 mg PO DAILY Qty: 90 RF: 1 fenofibrate 160 mg tablet 160 mg PO DAILY Qty: 90 RF: 1 lisinopril 20 mg tablet 20 mg PO DAILY Qty: 90 RF: 2 colchicine 0.6 mg capsule 0.6 mg PO BID Qty: 180 RF: 1 finasteride 5 mg tablet 5 mg PO DAILY RF: 0 atorvastatin [Lipitor] 80 mg tablet 80 mg PO BEDTIME RF: 0 Referrals: Shaquille Dennison MD [Primary Care Provider] -
--- NOTE | 2019-06-06 14:35 | DI.CT.S_ITS ---
PROCEDURE: CT CERVICAL SPINE WO CON INDICATIONS: fall, nonspecific neck pain TECHNIQUE: Noncontrast 3 mm thick sections acquired from the skull base to the T4 level. Sagittal and coronal reformats were then constructed. For radiation dose reduction, the following was used: automated exposure control, adjustment of mA and/or kV according to patient size. COMPARISON: None. FINDINGS: Image quality: Diagnostic. Bones: The craniocervical and atlantoaxial joints are well-maintained. The odontoid is intact. The vertebral body heights and prevertebral soft tissues are within normal limits throughout the cervical spine without evidence to suggest acute compression fracture. No other fractures are evident within the cervical spine. The odontoid appears intact. The bone mineralization is within normal limits. [id number] degenerative changes of the cervical spine are most pronounced at the atlantoaxial joint and at the levels of C4-5 and C5-6. There is disc height loss and disc osteophyte complexes with mild facet arthrosis at the levels of C4-5 and C5-6. Soft tissues: No prevertebral soft tissue swelling. The imaged lung apices are clear. Imaged portions of the mediastinum are unremarkable. Otherwise, the remainder of the imaged soft tissues of the neck are within normal limits. IMPRESSION: 1. No acute fractures of the cervical spine. 2. [id number] degenerative changes of the cervical spine. Dictated by: Vimal Carrero M.D. on 06/06/2019 at 14:12 Approved by: Vimal Carrero M.D. on 06/06/2019 at 14:14
--- NOTE | 2019-06-06 14:35 | DI.CT.S_ITS ---
PROCEDURE: CT HEAD/BRAIN WO CON INDICATIONS: fell backwards, hit head, large hematoma, no LOC TECHNIQUE: Noncontrast 4.5 mm thick angled axial sections acquired from the foramen magnum to the vertex, with coronal and sagittal reformats. For radiation dose reduction, the following was used: automated exposure control, adjustment of mA and/or kV according to patient size. COMPARISON: None. FINDINGS: Image quality: Diagnostic. CSF spaces: Basal cisterns are patent. No extra-axial fluid collections. Ventricles are normal in size and shape. Brain: No midline shift. No intracranial masses or hemorrhage. Buckner-white matter interface is normal. Skull and face: There is a large subgaleal/scalp hematoma identified along the left posterior parietal region without an underlying calvarial fracture. Calvarium and visualized facial bones are intact, without suspicious lesions. Sinuses: Minimal mucosal thickening is identified involving the bilateral inferior maxillary sinuses and of the anterior ethmoid air cells. Otherwise, the imaged paranasal sinuses and mastoid air cells are clear. IMPRESSION: 1. No acute intracranial hemorrhage. 2. Prominent scalp hematoma. No underlying fractures. 2. Mild paranasal sinus disease. Dictated by: Vimal Carrero M.D. on 06/06/2019 at 14:08 Approved by: Vimal Carrero M.D. on 06/06/2019 at 14:12
[2019-06-06 17:22] VITALS: BP 144/82; PULSE 66; RESP 14; O2SAT 99
== END 2019-06-06 17:24 | disposition home or self-care (01) ==
PROVIDERS: Emergency Provider Emergency Medicine; Family Provider Family Medicine; PCP Family Medicine
DX: S01.01XA Laceration without foreign body of scalp, initial encounter (principal); S06.0X0A Concussion without loss of consciousness, initial encounter; M54.2 Cervicalgia; W17.89XA Other fall from one level to another, initial encounter; Y99.0 Civilian activity done for income or pay
CPT/HCPCS: 12002; 70450; 72125; 99281; 99284

== ENCOUNTER → 2020-03-24 09:59 | Outpatient (CLI) | payer OTHER, SELFPAY ==
[2020-03-24 10:50] LABS: Add Manual Diff / Slide Review NO; Basophils Absolute Auto 100 /uL (0-100); Basophils Percent Auto 1.5 % (0-2); Eosinophils Absolute Auto 200 /uL (0-450); Hematocrit 38.6 % (41-53); Hemoglobin 12.8 g/dL (13.5-17.5); Lymphocytes Absolute Auto 1500 /uL (1100-4500); Lymphocytes Percent Auto 37.9 % (25-40); Mean Corpuscular HGB Conc 33.1 % (30-36); Mean Corpuscular Hemoglobin 28.6 PG (26-34); Mean Corpuscular Volume 86.4 fL (80-100); Monocytes Absolute Auto 500 /uL (0-900); Monocytes Percent Auto 11.7 % (3-14); Neutrophils Absolute Auto 1700 /uL (1500-7000); Neutrophils Percent Auto 42.9 % (50-75); Platelet Count 208 X10^3/uL (150-400); Red Blood Cell Count 4.47 X10^6/uL (4.5-5.9); Red Cell Distribution Width 13.6 % (11.6-14.8); White Blood Cell Count 3.9 X10^3/uL (4.5-11.0)
[2020-03-24 11:21] LABS: Alanine Aminotransferase 36 IU/L (<50); Albumin 4.3 g/dL (3.5-5.0); Albumin Globulin Ratio 1.4 (1.0-2.8); Alkaline Phosphatase 95 U/L (38-126); Aspartate Aminotransferase 38 IU/L (17-59); BUN Creatinine Ratio 14.6 (6-22); Bilirubin Total 0.4 mg/dL (0.2-1.3); Blood Urea Nitrogen 21 mg/dL (9-20); Calcium 9.4 mg/dL (8.4-10.2); Carbon Dioxide 29 mmol/L (22-32); Chloride 103 mmol/L (98-107); Cholesterol 124 mg/dL (140-199); Estimated Glomerular Filt Rate 48.6 mL/min (>60); Glucose 87 mg/dL (80-110); HDL Cholesterol 37 mg/dL (40-60); HEMOLYSIS < 15 (0-50); LDL Cholesterol Calculated 48 mg/dL (<100); Potassium 4.3 mmol/L (3.4-5.1); Sodium 136 mmol/L (137-145); Total Protein 7.3 g/dL (6.3-8.2); Triglycerides 196 mg/dL (35-150); Uric Acid 5.9 mg/dL (3.5-8.5)
[2020-03-24 11:47] LABS: Prostate Specific Antigen Scrn < 0.064 ng/mL (0.1-4.0)
== END ==
PROVIDERS: Family Provider Family Medicine; PCP Family Medicine; Referring Provider Family Medicine; Visit Provider Family Medicine
DX: I10 Essential (primary) hypertension (principal); M10.9 Gout, unspecified
CPT/HCPCS: 36415; 80053; 80061; 84550; 85025; G0103

== ENCOUNTER → 2020-04-05 11:04 | Outpatient (CLI) | payer OTHER, SELFPAY ==
[2020-04-05 12:54] LABS: HEMOLYSIS < 15 (0-50); Iron 77 ug/dL (49-181)
[2020-04-05 13:06] LABS: Percent Iron Saturation 16 % (20-50); Total Iron Binding Capacity 479 ug/dL (261-462); Transferrin 370 mg/dL (206-381)
[2020-04-05 13:28] LABS: Ferritin 12 ng/mL (18-464)
[2020-04-05 13:59] LABS: Folate 9.6 ng/mL (2.76-20.0); Vitamin B12 552 pg/mL (239-931)
== END ==
PROVIDERS: Family Provider Family Medicine; PCP Family Medicine; Referring Provider Family Medicine; Visit Provider Family Medicine
DX: D64.9 Anemia, unspecified (principal)
CPT/HCPCS: 36415; 82607; 82728; 82746; 83540; 83550

== ENCOUNTER → 2020-05-10 11:19 | Outpatient (CLI) | payer OTHER, SELFPAY ==
[2020-05-10 12:36] LABS: COVID19 -Nasal RAPID Negative (Negative)
== END ==
PROVIDERS: Family Provider Family Medicine; PCP Family Medicine; Visit Provider Specialist
DX: Z01.812 Encounter for preprocedural laboratory examination (principal); Z20.822 Contact with and (suspected) exposure to COVID-19
CPT/HCPCS: 87635; C9803

== ENCOUNTER 2020-05-11 06:35 | Day surgery (SDC) | payer OTHER, SELFPAY ==
[2020-05-11] VITALS (7 sets, daily range): BP systolic 89–112; BP diastolic 47–68; PULSE 56–72; RESP 7–16; TEMP 36–36.6; O2SAT 94–98; BMI 37.2
[2020-05-11] MEDS: LACTATED RINGERS 1,000 ML 200 ML IV (07:30)
--- NOTE | 2020-05-11 07:50 | PM.PREOP ---
Pre-operative Note COVID-19 COVID-19 status: Negative Result date/Date tested (Pos, Neg/Pending): 05/10/20 Interval Note History & Physical reviewed/Exam performed by Physician: Yes Changes to H&P: No ASA Class (for procedural sedation): II
[2020-05-11] MEDS: LIDOCAINE 4% SOLN 50 ML 20 ML TOP (07:55)
[2020-05-11] MEDS: fentaNYL 250 MCG/5 ML INJ IV (07:56)
[2020-05-11] MEDS: MIDAZOLAM 5 MG/5 ML VIAL IV (08:00)
--- NOTE | 2020-05-11 08:04 | PM.OP.ENDO ---
Operative Date/Time/Diagnoses Date of procedure: 05/11/20 Time of procedure: 08:04 Pre-op diagnosis: Anemia Post-op diagnosis: same Procedure & Clinicians Study performed: EGD Same procedure as scheduled: Yes Indications: Determine possible cause of anemia Surgeon: Matthew Bansal Procedure Notes SCOAP/Timeout: Performed Procedure in detail: The patient had topical anesthetic applied to oropharynx. She was placed in left lateral decubitus position and underwent IV sedation directed by the surgeon consisting of fentanyl and Versed. A bite block was inserted and the scope was advanced through it into the esophagus. The esophagus was unremarkable. GE junction was noted at 40 cm from the incisors.. The stomach insufflated well. There were no lesions seen in the body, antrum or at the incisura. The pyloric channel was patent. The duodenum was unremarkable to the 4th part. The scope was brought back into the stomach and retroflexed. The proximal stomach appeared normal. There was no evidence of a hiatal hernia.. The scope was straightened and brought out through the esophagus again. No lesions were seen. The scope was removed and the patient tolerated the procedure well. Scope withdrawal time: Not applicable Sedation minutes: 8 Specimen(s): none sent Complications: none Impression: Normal exam. No cause for anemia found. Post-procedure Recommendations: Other recommendation (Will schedule colonoscopy) Disposition: PACU
--- NOTE | 2020-05-11 08:13 | SUR.PHASEI ---
Pt arrived to PACU very sedated, arouses easily. Nasal cannula placed. Airway patent.
--- NOTE | 2020-05-11 08:45 | SUR.PHASEII ---
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 Pt left in stable condition.
== END 2020-05-11 08:45 | disposition home or self-care (01) ==
PROVIDERS: Family Provider Family Medicine; PCP Family Medicine; Referring Provider Specialist; Visit Provider Specialist
PROC: 0DJ08ZZ Inspection of Upper Intestinal Tract, Via Natural or Artificial Opening Endoscopic (ICD-10-PCS; CPT 43235; principal; 2020-05-11 07:45)
DX: D64.9 Anemia, unspecified (principal); I10 Essential (primary) hypertension
CPT/HCPCS: 43235; 99152; J2250; J3010

== ENCOUNTER → 2020-06-16 09:17 | Outpatient (CLI) | payer OTHER, SELFPAY ==
[2020-06-16 10:00] LABS: COVID19 -Nasal RAPID Negative (Negative)
== END ==
PROVIDERS: Family Provider Family Medicine; PCP Family Medicine; Visit Provider Specialist
DX: Z20.822 Contact with and (suspected) exposure to COVID-19 (principal)
CPT/HCPCS: 87635; C9803

== ENCOUNTER 2020-06-17 08:17 | Day surgery (SDC) | payer OTHER, SELFPAY ==
--- NOTE | 2020-06-17 | PATH_ITS ---
[facility] Accession Number: [id number] . 01 Material submitted: . PART A: colon - CECUM PART B: colon - POLYPS AT 110 CM PART C: colon - POLYPS AT 30 CM X3 . 02 Diagnosis: A. Cecum, Biopsy: Tubular adenoma. . B. Colon, Polyps at 110 cm, Biopsy: Tubular adenoma in two of five fragments. . C. Colon, Polyp at 30 cm x3, Biopsies: Hyperplastic polyps. [facility] 06/21/2020 0930 Local . 02 Electronically signed: . Becky Narvaez MD, Pathologist NPI- [id number] . 01 Gross description: . Part A: CECUM: Received in formalin are 4 fragment(s) of darlnig, soft tissue measuring 0.1 x 0.1 x 0.1 cm to 0.3 x 0.3 x 0.2 cm submitted entirely in 1 cassette(s) Part B: POLYPS AT 110 CM: Received in formalin are 4 fragment(s) of darling, soft tissue measuring 0.1 x 0.1 x 0.1 cm to 0.3 x 0.3 x 0.3 cm submitted entirely in 1 cassette(s) Part C: POLYPS AT 30 CM X3: Received in formalin are 4 fragment(s) of darling, soft tissue measuring 0.2 x 0.2 x 0.1 cm to 0.7 x 0.4 x 0.3 cm submitted entirely in 1 cassette(s) /[facility] 06/18/2020 0106 Local . 02 Pathologist provided ICD-10: D12.0, D12.6 . 02 CPT . 149640, 991806, 469169 Performed at: 01 [facility] [address], [place], [place] [id number] MD Lupillo Pierre MD Phone: [phone] Performed at: 02 [facility] [id number] [place] [id number] MD Becky Narvaez MD Phone: [phone]
[2020-06-17 08:43] VITALS: BP 123/73; PULSE 63; RESP 18; TEMP 36; O2SAT 97; BMI 37.2
[2020-06-17] MEDS: LACTATED RINGERS 1,000 ML 200 ML IV (09:02)
--- NOTE | 2020-06-17 09:55 | PM.HP.1 ---
History of Present Illness History of Present Illness Date Patient Seen: 06/17/20 Time Patient Seen: 09:55 Chief complaint: SDC Narrative: Patient here for evaluation of anemia. He had a negative EGD. Is here for colonoscopy. Patient History Medical History Gout (~1994) HTN (hypertension) Surgical History Anesthesia History of carpal tunnel repair Meniscus degeneration Status post hemorrhoidectomy Status post rotator cuff repair Family & Social History Family History Father Heart disease Hypertension Diabetes mellitus Grandfather Heart disease Grandfather Heart disease Grandmother No problems noted. Mother Cancer Grandmother No problems noted. Sister No problems noted. Social History: household members spouse Tobacco & Substance use: Smoking Status Former smoker alcohol intake current alcohol intake frequency holiday/special occasion Substance Use Type does not use Meds Home Medications and Allergies Home Medications Medication Instructions Recorded Confirmed Type oxiconazole [Oxistat] 1 bharath TP BID #60 gm 03/07/16 06/17/20 Rx finasteride 5 mg tablet 5 mg PO DAILY 01/07/18 06/17/20 History tamsulosin 0.4 mg capsule 0.4 mg PO BID #60 cap 10/03/18 06/17/20 Rx lisinopril 20 mg tablet 20 mg PO DAILY #90 tab 11/03/19 06/17/20 Rx fenofibrate 160 mg tablet 160 mg PO DAILY #90 tab 02/12/20 06/17/20 Rx atorvastatin 80 mg tablet 80 mg PO BEDTIME #90 tab 05/21/20 06/17/20 Rx allopurinol 300 mg tablet 300 mg PO DAILY #90 tab 05/24/20 06/17/20 Rx colchicine 0.6 mg PO DAILY 06/17/20 06/17/20 History Allergies Allergy/AdvReac Type Severity Reaction Status Date / Time No Known Drug Allergies Allergy Verified 05/11/20 07:21 Review of Systems Review of Systems ROS: Yes All systems reviewed with the patient and are negative except as otherwise documented Exam Vital Signs (past 8 hours): - 06/17/20 08:43 Temperature 96.8 F L Pulse Rate 63 Respiratory Rate 18 Blood Pressure 123/73 Pulse Oximetry 97 Oxygen Delivery Method Room Air Narrative Exam Narrative: Pleasant cooperative patient no apparent distress. Lungs are clear to auscultation. No rales or rhonchi. Heart regular rate and rhythm no murmur gallop. Abdomen is soft nontender without mass. No obvious hernias. Patient is alert and oriented x3. Assessment & Plan Assessment & Plan narrative: The patient for a screening colonoscopy. I have discussed the procedure with them. Risks of bleeding, perforation which would necessitate major operation, failure to find remove all lesions, the potential tattoo were all discussed. All questions were answered. They wished to proceed.
--- NOTE | 2020-06-17 09:56 | PM.PREOP ---
Pre-operative Note COVID-19 COVID-19 status: Negative Result date/Date tested (Pos, Neg/Pending): 06/16/20 Interval Note History & Physical reviewed/Exam performed by Physician: Yes Changes to H&P: No ASA Class (for procedural sedation): II
[2020-06-17] MEDS: MIDAZOLAM 5 MG/5 ML VIAL IV (10:18)
[2020-06-17] MEDS: fentaNYL 250 MCG/5 ML INJ IV (10:18)
--- NOTE | 2020-06-17 11:01 | PM.OP.ENDO ---
Operative Date/Time/Diagnoses Date of procedure: 06/17/20 Time of procedure: 11:01 Pre-op diagnosis: Anemia of uncertain origin. Post-op diagnosis: same (Small polyps identified and removed. No obvious source of bleeding found on this exam.) Procedure & Clinicians Study performed: Colonoscopy with cold biopsy Same procedure as scheduled: Yes Indications: Determine source of anemia if possible. Rule out GI source Surgeon: Matthew Bansal Procedure Notes SCOAP/Timeout: Performed Procedure in detail: The patient was placed in the left lateral decubitus position and underwent IV sedation directed by the surgeon consisting of fentanyl and Versed. Digital exam was unremarkable. I could not feel his prostate well.. The scope was inserted and advanced through the rectum into the sigmoid, descending, transverse, and ascending colon.. The cecum was reached identified by the ileocecal valve and the appendiceal opening. In order to make my way through the colon and cecum which appeared to be elongated the patient had to be repositioned multiple times stiffener inserted and pressure applied to his abdominal wall. The scope was gradually brought out. I removed polyp in the cecum 2 polyps at 110 cm near each other and 3 polyps removed at 30 cm from the anal verge. All of these lesions were quite small under 5 mm and none are suspected to be the source of his anemia. The scope ultimately was retroflexed in the rectum. The appearance was remarkable for small internal hemorrhoids with scarring but no active ulceration.. The scope was removed and the patient tolerated the procedure well. The prep was good. Scope withdrawal time: 8min (13.5 total) Sedation minutes: 53 Findings: polyp (Multiple small lesions) Specimen(s): other (Polyps) Complications: none Post-procedure Recommendations: Colonscopy in 5 years Plan for aftercare: Follow-up with primary care provider Follow up: as needed Disposition: PACU
[2020-06-17 11:04] VITALS: BP 99/50; PULSE 56; RESP 13; TEMP 36.5; O2SAT 96
[2020-06-17 11:10] VITALS: BP 103/54; PULSE 63; RESP 11; O2SAT 97
[2020-06-17 11:19] VITALS: BP 101/64; PULSE 54; RESP 11; O2SAT 96
[2020-06-17 11:32] VITALS: BP 100/63; PULSE 50; RESP 13; TEMP 36.1; O2SAT 98
== END 2020-06-17 11:45 | disposition home or self-care (01) ==
PROVIDERS: Family Provider Family Medicine; PCP Family Medicine; Referring Provider Specialist; Visit Provider Specialist
PROC: 0DJD8ZZ Inspection of Lower Intestinal Tract, Via Natural or Artificial Opening Endoscopic (ICD-10-PCS; CPT 45378; principal; 2020-06-17 09:15)
DX: D64.9 Anemia, unspecified (principal); K64.8 Other hemorrhoids; D12.0 Benign neoplasm of cecum; D12.6 Benign neoplasm of colon, unspecified; I10 Essential (primary) hypertension
CPT/HCPCS: 45380; 99152; 99153; J2250; J3010

== ENCOUNTER → 2020-08-25 14:49 | Outpatient (CLI) | payer OTHER, SELFPAY ==
[2020-08-25 15:33] LABS: COVID19 -Nasal RAPID Negative (Negative)
== END ==
PROVIDERS: Family Provider Family Medicine; PCP Family Medicine; Visit Provider Student in an Organized Health Care Education/Training Program
DX: K30 Functional dyspepsia (principal); R43.2 Parageusia; R52 Pain, unspecified
CPT/HCPCS: 87635

== ENCOUNTER 2020-08-25 14:59 | Inpatient (IN) | payer OTHER, MEDICARE, SELFPAY ==
[2020-08-25] VITALS (53 sets, daily range): BP systolic 75–118; BP diastolic 44–79; PULSE 82–94; RESP 12–25; TEMP 36.9–37.5; O2SAT 92–98; BMI 36.5
[2020-08-25 15:27] LABS: Add Manual Diff / Slide Review NO; Basophils Absolute Auto 0 /uL (0-100); Basophils Percent Auto 0.4 % (0-2); Eosinophils Absolute Auto 500 /uL (0-450); Eosinophils Percent Auto 4.5 % (2-4); Hematocrit 39.1 % (41-53); Hemoglobin 13.3 g/dL (13.5-17.5); Lymphocytes Absolute Auto 300 /uL (1100-4500); Lymphocytes Percent Auto 3.2 % (25-40); Mean Corpuscular HGB Conc 34.2 % (30-36); Mean Corpuscular Hemoglobin 28.5 PG (26-34); Mean Corpuscular Volume 83.4 fL (80-100); Monocytes Absolute Auto 400 /uL (0-900); Monocytes Percent Auto 4.1 % (3-14); Neutrophils Absolute Auto 9100 /uL (1500-7000); Neutrophils Percent Auto 87.8 % (50-75); Platelet Count 219 X10^3/uL (150-400); Red Blood Cell Count 4.69 X10^6/uL (4.5-5.9); Red Cell Distribution Width 14.7 % (11.6-14.8); White Blood Cell Count 10.3 X10^3/uL (4.5-11.0)
[2020-08-25] MEDS: SODIUM CHLORIDE 0.9% 1,000 ML 1000 ML IV (15:32)
[2020-08-25 15:33] LABS: Alanine Aminotransferase 39 IU/L (<50); Albumin 3.8 g/dL (3.5-5.0); Albumin Globulin Ratio 1.2 (1.0-2.8); Alkaline Phosphatase 82 U/L (38-126); Aspartate Aminotransferase 41 IU/L (17-59); BUN Creatinine Ratio 10.2 (6-22); Bilirubin Total 1.1 mg/dL (0.2-1.3); Blood Urea Nitrogen 49 mg/dL (9-20); Carbon Dioxide 20 mmol/L (22-32); Chloride 93 mmol/L (98-107); Estimated Glomerular Filt Rate 12.1 mL/min (>60); Globulin 3.2 g/dL (1.7-4.1); Glucose 127 mg/dL (80-110); HEMOLYSIS < 15 (0-50); Lipase 73 U/L (23-300); Potassium 4.4 mmol/L (3.4-5.1); Sodium 124 mmol/L (137-145)
--- NOTE | 2020-08-25 15:36 | ED_ITS ---
HPI - General Adult General Chief complaint: Shortness of Breath/Dyspnea Stated complaint: Fatigue, SOB past couple of days Time Seen by Provider: 08/25/20 15:08 Source: patient Mode of arrival: Wheelchair Limitations: no limitations History of Present Illness HPI narrative: Patient is a 70-year-old male. Has known prostate issues and known gout issues. His here for evaluation of fatigue and shortness of breath and generalized body aches. No chest pain. He states that he feels like he has had decreased urine. Some nausea but no vomiting. No change in bowel habits. Has not tried anything for symptoms. Went to the walk-in clinic secondary to the symptoms he was having any was sent to the emergency department for evaluation. He does see a urologist. He states that when he goes the urologist office he normally has 200-300 cc of urine in his bladder. He has had urinary retention in the past. He has been taking all of his medications as directed. Related Data Home Medications Medication Instructions Recorded Confirmed finasteride 5 mg tablet 5 mg PO DAILY 01/07/18 08/25/20 Previous Rx's Medication Instructions Recorded oxiconazole [Oxistat] 1 bharath TP BID #60 gm 03/07/16 tamsulosin 0.4 mg capsule 0.4 mg PO BID #60 cap 10/03/18 atorvastatin 80 mg tablet 80 mg PO BEDTIME #90 tab 05/21/20 allopurinol 300 mg tablet 300 mg PO DAILY #90 tab 05/24/20 colchicine 0.6 mg tablet See Rx Instructions .ROUTE 07/20/20 .COMPLEX #180 tablet lisinopril 20 mg tablet See Rx Instructions .ROUTE 07/20/20 .COMPLEX #90 tab fenofibrate 160 mg tablet 160 mg PO DAILY #90 tab 08/13/20 Allergies Allergy/AdvReac Type Severity Reaction Status Date / Time No Known Drug Allergies Allergy Verified 08/25/20 15:09 Review of Systems Constitutional Constitutional: Reports fatigue, Denies fever(s), Denies headache(s), Reports lethargy and Reports malaise Eyes Eyes: Denies change in vision ENT Ears, Nose, Mouth, and Throat: Denies headache(s) and Denies sore throat Cardiovascular Cardiovascular: Denies chest pain and Reports dyspnea Respiratory Respiratory: Reports dyspnea Gastrointestinal Gastrointestinal: Denies abdominal pain, Denies change in bowel habits, Reports nausea and Denies vomiting Genitourinary Comments: Decreased urine output Musculoskeletal Musculoskeletal: Denies arthralgias and Denies myalgias Integumentary/Breasts Skin/Breast: Denies rash Neurologic Neurologic: Denies behavioral changes and Denies headache(s) Psychiatric Psychiatric: Denies behavioral changes Endocrine Endocrine: Reports fatigue Hematologic/Lymphatic On Anticoagulants: No Allergic/Immunologic Allergic/Immunologic: Denies urticaria Patient History Medical History Anemia CKD (chronic kidney disease) Gout (~1994) Gout HTN (hypertension) Hypertriglyceridemia Pneumonia Urinary retention Surgical History Anesthesia History of carpal tunnel repair Meniscus degeneration Status post hemorrhoidectomy Status post rotator cuff repair Family History Father Heart disease Hypertension Diabetes mellitus Grandfather Heart disease Grandfather Heart disease Grandmother No problems noted. Mother Cancer Grandmother No problems noted. Sister No problems noted. Social History marital status: household members: spouse Smoking Status: Former smoker alcohol intake: current substance use type: does not use Smoking Status: Former smoker alcohol intake frequency: holidays/special occasions only Substance Use Type: does not use Exam Initial Vital Signs Initial Vital Signs: Vital Signs Temperature 99.5 F 08/25/20 15:02 Pulse Rate 90 08/25/20 15:02 Respiratory Rate 22 08/25/20 15:02 Blood Pressure 107/53 L 08/25/20 15:02 Pulse Oximetry 95 08/25/20 15:02 Const General: cooperative, comfortable and well groomed Limitations: mental status not altered [facility] Head: normal to inspection and normocephalic Eyes General: appearance normal, both eyes and all related structures Chest Chest: No tenderness Resp Effort & Inspection: normal respiratory effort Auscultation: clear to auscultation bilaterally Cardio Rate: regular rate Rhythm: regular rhythm GI Inspection: non-distended Palpation: soft, No firm and No tender External: normal external exam and circumcised Back/Spine/Pelvis Back: No CVA tenderness Skin Lesions: no lesions Rashes: no rashes Neuro General: patient alert and patient awake Cognition: normal cognition Speech: speech normal Extrem General: normal to inspection and capillary refill normal Psych Appearance: grossly normal and well kempt Scores GCS Alexandra coma scale eye opening: Spontaneous Alexandra coma scale verbal response: Orientated [place] coma scale motor response: Obey commands [place] coma scale total score: 15 Course Orders Ordered: ED Orders 08/25/20 15:10 Complete Blood Count AUTO DIFF Stat Comprehensive Metabolic Panel Stat Lipase Stat 08/25/20 16:10 Creatinine Urine Random Stat Sodium Urine Random Stat Urinalysis and Microscopic Stat Urine Culture Stat 08/25/20 16:17 CT abdomen pelvis wo con Stat 08/25/20 18:20 Lactate (Lactic Acid) Stat 08/25/20 18:25 Blood Culture Stat Sodium Chloride (Normal Saline 0.9%) 1,000 mls @ 250 mls/hr IV CONT JENN Last Infusion: 08/25/20 19:03 Dose: 0 mls/hr Documented by: Admin: 08/25/20 16:37 Dose: 250 mls/hr Documented by: NELDA Discontinued Medications Sodium Chloride (Normal Saline 0.9%) 1,000 mls @ 1,000 mls/hr IV BOLUS ONE Stop: 08/25/20 16:08 Last Infusion: 08/25/20 16:23 Dose: 0 mls/hr Documented by: Admin: 08/25/20 15:32 Dose: 1,000 mls/hr Documented by: NELDA Ceftriaxone Sodium/Dextrose (Rocephin) 1 gm in 50 mls @ 100 mls/hr IV NOW ONE Stop: 08/25/20 18:25 Last Infusion: 08/25/20 19:04 Dose: 0 mls/hr Documented by: Admin: 08/25/20 18:30 Dose: 100 mls/hr Documented by: MARIIA Vital Signs Vital signs: Vital Signs - 8 hr 08/25/20 15:02 08/25/20 15:05 08/25/20 15:10 Temperature 99.5 F Pulse Rate 90 90 91 H Respiratory Rate 22 17 Blood Pressure 107/53 L 107/53 L Pulse Oximetry 95 92 96 08/25/20 15:15 08/25/20 15:20 08/25/20 15:25 Temperature Pulse Rate 91 H 87 89 Respiratory Rate 20 18 19 Blood Pressure Pulse Oximetry 96 96 94 08/25/20 15:30 08/25/20 15:32 08/25/20 15:35 Temperature Pulse Rate 86 89 85 Respiratory Rate 20 22 20 Blood Pressure 75/45 L 76/44 L 86/54 L Pulse Oximetry 95 96 95 08/25/20 15:40 08/25/20 15:45 08/25/20 15:50 Temperature Pulse Rate 84 85 84 Respiratory Rate 20 22 23 Blood Pressure 100/52 L 96/52 L 98/54 L Pulse Oximetry 98 97 97 08/25/20 15:55 08/25/20 16:00 08/25/20 16:05 Temperature Pulse Rate 86 85 94 H Respiratory Rate 25 H 23 23 Blood Pressure 96/49 L 106/54 L Pulse Oximetry 97 98 98 08/25/20 16:10 08/25/20 16:14 08/25/20 16:15 Temperature Pulse Rate 88 91 H 92 H Respiratory Rate 14 15 Blood Pressure 105/56 L 98/53 L Pulse Oximetry 96 97 96 08/25/20 16:20 08/25/20 16:25 08/25/20 16:30 Temperature Pulse Rate 84 84 84 Respiratory Rate 13 18 17 Blood Pressure 100/53 L 98/54 L 103/51 L Pulse Oximetry 96 95 96 08/25/20 16:35 08/25/20 16:40 08/25/20 16:45 Temperature Pulse Rate 86 85 83 Respiratory Rate 20 21 17 Blood Pressure 103/51 L 104/51 L Pulse Oximetry 95 97 96 08/25/20 16:50 08/25/20 16:55 08/25/20 17:07 Temperature Pulse Rate 85 82 88 Respiratory Rate 17 15 18 Blood Pressure 108/53 L Pulse Oximetry 96 95 95 08/25/20 17:10 08/25/20 17:15 08/25/20 17:20 Temperature Pulse Rate 85 84 85 Respiratory Rate 16 19 18 Blood Pressure Pulse Oximetry 96 95 96 08/25/20 17:25 08/25/20 17:30 08/25/20 17:35 Temperature Pulse Rate 84 84 85 Respiratory Rate 14 17 12 Blood Pressure 105/55 L Pulse Oximetry 94 97 95 08/25/20 17:40 08/25/20 17:45 08/25/20 17:50 Temperature Pulse Rate 85 82 82 Respiratory Rate 22 15 14 Blood Pressure Pulse Oximetry 96 93 92 08/25/20 17:55 Temperature Pulse Rate 85 Respiratory Rate 16 Blood Pressure Pulse Oximetry 95 Medical Decision Making Medical Records Medical records reviewed: Yes I reviewed the patient's medical records. Lab Data Lab results reviewed: Yes I reviewed the patient's lab results. Result diagrams: 08/25/20 15:10 08/25/20 15:10 Labs: Lab Results 08/25/20 08/25/20 08/25/20 Range/Units 15:10 15:10 15:23 WBC 10.3 (4.5-11.0) X10^3/uL RBC 4.69 (4.5-5.9) X10^6/uL Hgb 13.3 L (13.5-17.5) g/dL Hct 39.1 L (41-53) % MCV 83.4 (80-100) fL MCH 28.5 (26-34) PG MCHC 34.2 (30-36) % RDW 14.7 (11.6-14.8) % Plt Count 219 (150-400) X10^3/uL Neut % (Auto) 87.8 H (50-75) % Lymph % (Auto) 3.2 L (25-40) % [place] % (Auto) 4.1 (3-14) % Eos % (Auto) 4.5 H (2-4) % Baso % (Auto) 0.4 (0-2) % Neut # (Auto) 9100 H (9635-9277) /uL Lymph # (Auto) 300 L (4966-7948) /uL [place] # (Auto) 400 (0-900) /uL Eos # (Auto) 500 H (0-450) /uL Baso # (Auto) 0 (0-100) /uL Sodium 124 L (137-145) mmol/L Potassium 4.4 (3.4-5.1) mmol/L Chloride 93 L (98-107) mmol/L Carbon Dioxide 20 L (22-32) mmol/L BUN 49 H (9-20) mg/dL Creatinine 4.80 H (0.66-1.25) mg/dL Estimated GFR 12.1 L (>60) mL/min BUN/Creatinine Ratio 10.2 (6-22) Glucose 127 H (80-110) mg/dL Calcium 9.0 (8.4-10.2) mg/dL Total Bilirubin 1.1 (0.2-1.3) mg/dL AST 41 (17-59) IU/L ALT 39 (<50) IU/L Alkaline Phosphatase 82 (38-126) U/L Total Protein 7.0 (6.3-8.2) g/dL Albumin 3.8 (3.5-5.0) g/dL Globulin 3.2 (1.7-4.1) g/dL Albumin/Globulin Ratio 1.2 (1.0-2.8) Lipase 73 (23-300) U/L Urine Color Urine Appearance Urine pH (4.5-8.0) Ur Specific [place] (1.000-1.035) Urine Protein (Negative) Urine Glucose (UA) (Negative) g/dL Urine Ketones (NEGATIVE) Urine Occult Blood (Negative) Urine Nitrate (Negative) Urine Bilirubin (NEGATIVE) Urine Urobilinogen (0.2) E.U./dL Ur Leukocyte Esterase (NEGATIVE) Urine RBC (0-5/HPF) Urine WBC (0-5/HPF) Ur Squamous Epith Cells (0-5/HPF) Amorphous Sediment Urine Bacteria (None) Urine Mucus (Negative) Ur Culture Indicated? Ur Random Sodium (30-90) mmol/L Urine Creatinine mg/dL SARS-CoV-2 (PCR) Cancelled 08/25/20 08/25/20 Range/Units 16:10 16:10 WBC (4.5-11.0) X10^3/uL RBC (4.5-5.9) X10^6/uL Hgb (13.5-17.5) g/dL Hct (41-53) % MCV (80-100) fL MCH (26-34) PG MCHC (30-36) % RDW (11.6-14.8) % Plt Count (150-400) X10^3/uL Neut % (Auto) (50-75) % Lymph % (Auto) (25-40) % [place] % (Auto) (3-14) % Eos % (Auto) (2-4) % Baso % (Auto) (0-2) % Neut # (Auto) (8491-2323) /uL Lymph # (Auto) (1915-9965) /uL [place] # (Auto) (0-900) /uL Eos # (Auto) (0-450) /uL Baso # (Auto) (0-100) /uL Sodium (137-145) mmol/L Potassium (3.4-5.1) mmol/L Chloride (98-107) mmol/L Carbon Dioxide (22-32) mmol/L BUN (9-20) mg/dL Creatinine (0.66-1.25) mg/dL Estimated GFR (>60) mL/min BUN/Creatinine Ratio (6-22) Glucose (80-110) mg/dL Calcium (8.4-10.2) mg/dL Total Bilirubin (0.2-1.3) mg/dL AST (17-59) IU/L ALT (<50) IU/L Alkaline Phosphatase (38-126) U/L Total Protein (6.3-8.2) g/dL Albumin (3.5-5.0) g/dL Globulin (1.7-4.1) g/dL Albumin/Globulin Ratio (1.0-2.8) Lipase (23-300) U/L Urine Color Yellow Urine Appearance Sl cloudy Urine pH 5.0 (4.5-8.0) Ur Specific [place] 1.025 (1.000-1.035) Urine Protein Trace H (Negative) Urine Glucose (UA) Negative (Negative) g/dL Urine Ketones Negative (NEGATIVE) Urine Occult Blood 3+ H (Negative) Urine Nitrate Negative (Negative) Urine Bilirubin Negative (NEGATIVE) Urine Urobilinogen 0.2 (0.2) E.U./dL Ur Leukocyte Esterase 2+ H (NEGATIVE) Urine RBC 10-30/hpf H (0-5/HPF) Urine WBC 10-30/hpf H (0-5/HPF) Ur Squamous Epith Cells 1-5 /hpf (0-5/HPF) Amorphous Sediment 1+ Urine Bacteria Few (2-10) H (None) Urine Mucus 1+ H (Negative) Ur Culture Indicated? Specimen cultured Ur Random Sodium 24 L (30-90) mmol/L Urine Creatinine 384.5 mg/dL SARS-CoV-2 (PCR) Imaging Data CT scan - abdomen/pelvis: Radiologist's Impression: [address] [id number] Scan ReportSigned Patient: Lupillo Barrera JMR#: [id number]: [id number]:[id number]/Sex: 70 / MDate of Service: 08/25/20Loc: EDAccession Number: [id number] Procedure: CT abdomen pelvis wo con Ordering Provider: Jin Morales D.O. PROCEDURE: CT ABDOMEN PELVIS WO CON INDICATIONS: Renal failure, urinary retention, abdominal pain TECHNIQUE: Noncontrast 5 mm thick sections acquired from the diaphragms to the symphysis. 5 mm coronal and sagittal reformats were then performed. For radiation dose reduction, the following was used: automated exposure control, adjustment of mA and/or kV according to patient size. COMPARISON: None. FINDINGS: Image quality: Excellent. ABDOMEN: Lung bases: Lung bases are clear. Heart size is normal. Solid organs: Liver is enlarged with steatosis. Gallbladder is unremarkable . Pancreas is normal in contours. Spleen is normal in size. No adrenal nodules. There is asymmetric left renal atrophy. Prominent extrarenal pelvis is noted on the left. Peritoneum and bowel: Unenhanced bowel loops demonstrate normal wall thickness and caliber. No free fluid or air. Nodes and vessels: No retroperitoneal or mesenteric adenopathy by size criteria. Aorta and inferior vena cava are normal in caliber. Miscellaneous: No ventral hernias. PELVIS: Genitourinary: Bladder wall demonstrates mild diffuse thickening. It is incompletely distended. Miscellaneous: Bilateral fat containing inguinal hernias are present. Bones: No suspicious bony lesions. No vertebral body compression fractures. IMPRESSION: 1. Hepatomegaly with steatosis. 2. Marked left renal atrophy. No obstruction. 3. Mildly thickened appearance of the bladder wall. This is nonspecific. This may be related to incomplete distention. However, cystitis can have a similar imaging appearance and recommend correlation to laboratory values. Dictated by: Joselin Kincaid M.D. on 08/25/2020 at 16:32 Approved by: Joselin Kincaid M.D. on 08/25/2020 at 16:38 ECG Data Attestation: I personally reviewed and interpreted this ECG as follows: Prior ECG tracings: not available for review Interpretation: Sinus rhythm Ventricular rate 91 Normal axis Normal QRS Normal QTC No ST T wave changes MDM Narrative Medical decision making narrative: Patient is nontoxic appearing. At at 1 point during the start of his workup he did have an episode of hypotension in this improved with fluids. He has a history of urinary retention. Bladder scan showed greater than 500 cc of urine in his bladder. A Vergara catheter was placed in the patient did have a fair amount of discomfort with this and only a small amount of urine returned. His labs show an acute kidney injury. This does appear to be pre renal based on the FENA. CT scan was ordered which did not show an enlarged bladder. Is also hyponatremic. Urinalysis is concerning for UTI so he was started on antibiotics. Blood cultures were ordered. Discussed case with Dr. cordova on-call for Internal Medicine who will admit for further evaluation treatment. Discussed the findings of the labs and the CT scan with the patient and he also expressed understanding and agreement. Discharge Plan Departure Patient Disposition: Admitted As Inpatient Clinical Impression: Acute kidney injury, Hyponatremia, Urinary tract infection Admit Date/Time: 08/25/20 17:57 Admit Provider: Kay Rose
--- NOTE | 2020-08-25 16:17 | DI.CT.S_ITS ---
PROCEDURE: CT ABDOMEN PELVIS WO CON INDICATIONS: Renal failure, urinary retention, abdominal pain TECHNIQUE: Noncontrast 5 mm thick sections acquired from the diaphragms to the symphysis. 5 mm coronal and sagittal reformats were then performed. For radiation dose reduction, the following was used: automated exposure control, adjustment of mA and/or kV according to patient size. COMPARISON: None. FINDINGS: Image quality: Excellent. ABDOMEN: Lung bases: Lung bases are clear. Heart size is normal. Solid organs: Liver is enlarged with steatosis. Gallbladder is unremarkable . Pancreas is normal in contours. Spleen is normal in size. No adrenal nodules. There is asymmetric left renal atrophy. Prominent extrarenal pelvis is noted on the left. Peritoneum and bowel: Unenhanced bowel loops demonstrate normal wall thickness and caliber. No free fluid or air. Nodes and vessels: No retroperitoneal or mesenteric adenopathy by size criteria. Aorta and inferior vena cava are normal in caliber. Miscellaneous: No ventral hernias. PELVIS: Genitourinary: Bladder wall demonstrates mild diffuse thickening. It is incompletely distended. Miscellaneous: Bilateral fat containing inguinal hernias are present. Bones: No suspicious bony lesions. No vertebral body compression fractures. IMPRESSION: 1. Hepatomegaly with steatosis. 2. Marked left renal atrophy. No obstruction. 3. Mildly thickened appearance of the bladder wall. This is nonspecific. This may be related to incomplete distention. However, cystitis can have a similar imaging appearance and recommend correlation to laboratory values. Dictated by: Joselin Kincaid M.D. on 08/25/2020 at 16:32 Approved by: Joselin Kincaid M.D. on 08/25/2020 at 16:38
[2020-08-25 16:19] LABS: Appearance Urine UA SL CLOUDY; Bilirubin Urine UA NEGATIVE (NEGATIVE); Color Urine UA YELLOW; Glucose Urine UA NEGATIVE (Negative); Ketones Urine UA NEGATIVE (NEGATIVE); Leukocyte Esterase Urine UA 2+ (NEGATIVE); Nitrite Urine UA NEGATIVE (Negative); Occult Blood Urine UA 3+ (Negative); Protein Urine UA TRACE (Negative); Specific Gravity Urine UA 1.025 (1.000-1.035); Urobilinogen Urine UA 0.2 E.U./dL (0.2)
[2020-08-25 16:27] LABS: RBC Urine 10-30/HPF (0-5/HPF); WBC Urine 10-30/HPF (0-5/HPF)
[2020-08-25 16:28] LABS: Amorphous Sediment Urine 1+; Bacteria Urine Few (2-10); Culture Indicated Urine Specimen Cultured; Mucus Urine 1+ (Negative); Squamous Epithelial Cell Urine 1-5 /HPF (0-5/HPF)
[2020-08-25] MEDS: SODIUM CHLORIDE 0.9% 1,000 ML 250 ML IV (16:37)
[2020-08-25 16:40] LABS: Sodium Urine Random 24 mmol/L (30-90)
[2020-08-25 17:03] LABS: Creatinine Urine Random 384.5 mg/dL
[2020-08-25] MEDS: CEFTRIAXONE 1 GM/50 ML FROZ.PIGGY IV (18:30)
[2020-08-25 18:47] LABS: Lactate (Lactic Acid) 1.3 mmol/L (0.7-2.1)
[2020-08-25 19:25] LABS: COVID19 - ADMIT (NP swab/PCR) Negative (Negative)
[2020-08-25] MEDS: SODIUM CHLORIDE 0.9% 1,000 ML 125 ML IV ×2 (20:03→23:33)
[2020-08-25 20:13] LABS: Uric Acid 6.7 mg/dL (3.5-8.5)
[2020-08-25 20:14] LABS: Magnesium 1.5 mg/dL (1.6-2.3)
--- NOTE | 2020-08-25 20:14 | DI.RAD.S_ITS ---
PROCEDURE: XR CHEST 1V INDICATIONS: Dyspnea on exertion TECHNIQUE: One view of the chest was acquired. COMPARISON: None. FINDINGS: Surgical changes and devices: None. Lungs and pleura: Lungs are clear. No pleural effusions or pneumothorax. Mediastinum: Mediastinal contours appear normal. Heart size is normal. Bones and chest wall: No suspicious bony lesions. Overlying soft tissues appear unremarkable. IMPRESSION: No acute cardiopulmonary disease process. Dictated by: Yvonne Baird MD, PhD on 08/26/2020 at 8:02 Approved by: Yvonne Baird MD, PhD on 08/26/2020 at 8:02
[2020-08-25 20:19] LABS: Hemoglobin A1C% w Est Avg Glu 5.5 % (4.0-6.0)
[2020-08-25 20:23] LABS: NT-proBNP (BNP-Adult 18+) 181 pg/mL (<125)
--- NOTE | 2020-08-25 20:48 | PM.HP.1 ---
History of Present Illness History of Present Illness Date Patient Seen: 08/25/20 Time Patient Seen: 20:06 Chief complaint: Fatigue, SOB past couple of days Narrative: Mr. Lupillo Barrera is a 70-year-old male with a past medical history of anemia, chronic kidney disease, gout, hypertension, hyperlipidemia hypertriglyceridemia in urinary transient with a past history obstructive uropathy, bladder outlet obstruction and urinary retention who presents to the emergency room sent in from the walk-in clinic with low blood pressure. In the [facility] the patient had pressures in the mid 80s systolic with accompanying orthostatic dizziness and tachycardia 100. The patient states that on Sunday he developed sinus pain and pressure that became progressive. He self-treated with Tylenol at home and symptoms improved to Sudafed. He additionally reported feeling short of breath with exertion that seemed to improve on Sunday only to reoccur with associated generalized fatigue. The patient additionally reports decreased urinary voiding and denies burning urgency or frequency. He denies systemic symptoms of fevers or chills, headache or sore throat. He reports no chest pain or palpitations. He denies shortness of breath at rest only with activity with an underlying generalized fatigue. He has had no cough or wheezing. Denies epigastric or abdominal, flank or suprapubic pain. Endorses a history of Danielle problems having had a TURP and has had multiple renal ultrasounds. He indicates that he sees his urologist every 6 months in seems to have urinary retention of 2-300 each visit. He reports no bowel issues, no constipation or diarrhea. 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 Upon arrival the ER the patient has a temperature 99.5?, heart rate 90, blood pressure 107/53, respiratory rate of 22 saturating 95% on room air. While in the ER the patient [place] [id number] without compensatory tachycardia. A CT of the abdomen pelvis finds bladder wall thickening with bilateral fat containing inguinal hernias, hepatomegaly with steatosis and marked left renal atrophy. Twelve lead EKG finds sinus rhythm at 91 biphasic P waves in V1 and V2 consistent with left atrial enlargement, no ectopy or block, no ST or T-wave changes, Q-waves noted inferiorly. On laboratory analysis the patient has white count of 10.3 with a elevated neutrophil count of 9100. His hemoglobin is 13.3 with hematocrit of 39.1. His chemistries are notable for hyponatremia 124 with a normal potassium 4.4 and a BUN of 49 and creatinine of 4.8. His EGFR is 12.1. His glucose is 127. His liver functions are all within normal limits. His spot urine sodium is 24 and urine creatinine is 384.5. Urinalysis: Cloudy, specific gravity 1.025, 3+ blood, 2+ leukocyte esterase WBCs 10-30, and positive for bacteria, negative nitrites. His COVID screening is negative. In the ER the patient responded well to of 1 L fluid bolus normal saline with improvement of pressure to the 110s. He had a Vergara catheter placed and has normal saline infusing at 250 mL per hour. 1 g of Rocephin IV use administered in the ER. The patient is admitted to the hospitalist service for UTI with acute kidney injury on chronic kidney disease. Patient History Medical History Anemia CKD (chronic kidney disease) Gout (~1994) Gout HTN (hypertension) Hypertriglyceridemia Pneumonia Urinary retention Surgical History Anesthesia History of carpal tunnel repair Meniscus degeneration Status post hemorrhoidectomy Status post rotator cuff repair Family & Social History Family History Father Heart disease Hypertension Diabetes mellitus Grandfather Heart disease Grandfather Heart disease Grandmother No problems noted. Mother Cancer Grandmother No problems noted. Sister No problems noted. Social History: household members spouse Prior Living Arrangements House Safety & Behavioral: Feels Safe in Current Yes Environment Been Physically Hurt or No Threatened By a Person Suicidal Ideation Description None Suicide Plan Description No Plan Tobacco & Substance use: Smoking Status Former smoker alcohol intake current alcohol intake frequency holiday/special occasion Substance Use Type does not use Meds Home Medications and Allergies Home Medications Medication Instructions Recorded Confirmed Type finasteride 5 mg tablet 5 mg PO DAILY 01/07/18 08/25/20 History tamsulosin 0.4 mg capsule 0.4 mg PO BID #60 cap 10/03/18 08/25/20 Rx allopurinol 300 mg tablet 300 mg PO DAILY #90 tab 05/24/20 08/25/20 Rx fenofibrate 160 mg tablet 160 mg PO DAILY #90 tab 08/13/20 08/25/20 Rx CoQ-10 300 mg PO DAILY 08/25/20 08/25/20 History atorvastatin [Lipitor] 80 mg PO DAILY 08/25/20 08/25/20 History colchicine 0.6 mg PO BID 08/25/20 08/25/20 History flaxseed oil 700 mg PO DAILY 08/25/20 08/25/20 History glucosamine sulfate [Glucosamine] 1,500 mg PO DAILY 08/25/20 08/25/20 History lisinopril 20 mg PO DAILY 08/25/20 08/25/20 History omega-3 fatty acids [Fish Oil] 1,000 mg PO DAILY 08/25/20 08/25/20 History oxiconazole [Oxistat] 1 bharath TP PRN PRN 08/25/20 08/25/20 History Allergies Allergy/AdvReac Type Severity Reaction Status Date / Time No Known Drug Allergies Allergy Verified 08/25/20 15:09 Review of Systems Review of Systems ROS: Yes All systems reviewed with the patient and are negative except as otherwise documented Exam Vital Signs (past 8 hours): - 08/25/20 15:02 08/25/20 15:05 08/25/20 15:10 Temperature 99.5 F Pulse Rate 90 90 91 H Respiratory Rate 22 17 Blood Pressure 107/53 L 107/53 L Pulse Oximetry 95 92 96 08/25/20 15:15 08/25/20 15:20 08/25/20 15:25 Temperature Pulse Rate 91 H 87 89 Respiratory Rate 20 18 19 Blood Pressure Pulse Oximetry 96 96 94 08/25/20 15:30 08/25/20 15:32 08/25/20 15:35 Temperature Pulse Rate 86 89 85 Respiratory Rate 20 22 20 Blood Pressure 75/45 L 76/44 L 86/54 L Pulse Oximetry 95 96 95 08/25/20 15:40 08/25/20 15:45 08/25/20 15:50 Temperature Pulse Rate 84 85 84 Respiratory Rate 20 22 23 Blood Pressure 100/52 L 96/52 L 98/54 L Pulse Oximetry 98 97 97 08/25/20 15:55 08/25/20 16:00 08/25/20 16:05 Temperature Pulse Rate 86 85 94 H Respiratory Rate 25 H 23 23 Blood Pressure 96/49 L 106/54 L Pulse Oximetry 97 98 98 08/25/20 16:10 08/25/20 16:14 08/25/20 16:15 Temperature Pulse Rate 88 91 H 92 H Respiratory Rate 14 15 Blood Pressure 105/56 L 98/53 L Pulse Oximetry 96 97 96 08/25/20 16:20 08/25/20 16:25 08/25/20 16:30 Temperature Pulse Rate 84 84 84 Respiratory Rate 13 18 17 Blood Pressure 100/53 L 98/54 L 103/51 L Pulse Oximetry 96 95 96 08/25/20 16:35 08/25/20 16:40 08/25/20 16:45 Temperature Pulse Rate 86 85 83 Respiratory Rate 20 21 17 Blood Pressure 103/51 L 104/51 L Pulse Oximetry 95 97 96 08/25/20 16:50 08/25/20 16:55 08/25/20 17:07 Temperature Pulse Rate 85 82 88 Respiratory Rate 17 15 18 Blood Pressure 108/53 L Pulse Oximetry 96 95 95 08/25/20 17:10 08/25/20 17:15 08/25/20 17:20 Temperature Pulse Rate 85 84 85 Respiratory Rate 16 19 18 Blood Pressure Pulse Oximetry 96 95 96 08/25/20 17:25 08/25/20 17:30 08/25/20 17:35 Temperature Pulse Rate 84 84 85 Respiratory Rate 14 17 12 Blood Pressure 105/55 L Pulse Oximetry 94 97 95 08/25/20 17:40 08/25/20 17:45 08/25/20 17:50 Temperature Pulse Rate 85 82 82 Respiratory Rate 22 15 14 Blood Pressure Pulse Oximetry 96 93 92 08/25/20 17:55 08/25/20 18:00 08/25/20 18:05 Temperature Pulse Rate 85 86 85 Respiratory Rate 16 20 17 Blood Pressure 111/56 L Pulse Oximetry 95 97 96 08/25/20 18:10 08/25/20 18:15 08/25/20 18:20 Temperature Pulse Rate 88 87 87 Respiratory Rate 20 Blood Pressure Pulse Oximetry 95 08/25/20 18:25 08/25/20 18:30 08/25/20 18:35 Temperature Pulse Rate 86 86 87 Respiratory Rate 16 23 21 Blood Pressure Pulse Oximetry 93 97 96 08/25/20 18:40 08/25/20 18:45 08/25/20 18:50 Temperature Pulse Rate 86 85 89 Respiratory Rate 17 18 18 Blood Pressure Pulse Oximetry 96 96 98 08/25/20 18:55 08/25/20 19:00 08/25/20 19:05 Temperature Pulse Rate 86 87 84 Respiratory Rate 15 18 18 Blood Pressure Pulse Oximetry 97 96 96 08/25/20 20:22 Temperature 98.5 F Pulse Rate 89 Respiratory Rate 16 Blood Pressure 118/79 Pulse Oximetry 92 Oxygen Delivery Method Room Air Oxygen Flow Rate 0 Narrative Exam Narrative: GENERAL APPEARANCE: well developed, obese male with a BMI of 36.5 resting supine in bed in no acute distress. HEENT: Normocephalic, PERRLA, conjunctiva clear, EOMs intact without nystagmus, mild left sinus tenderness to percussion, no rhinorrhea, mucous membranes are pink and dry, halitosis. NECK/THYROID: neck supple, no JVD, no carotid bruit, no thyromegaly, trachea midline. LYMPH NODES: no cervical or supraclavicular lymphadenopathy. SKIN: [place], warm and dry, no visible lesions, rashes, ulcerations or petechiae. HEART: regular rate and rhythm, S1-S2, no murmur, no rubs or gallops, brisk capillary refill, no edema LUNGS: Breath sounds diminished bibasilar but clear to auscultation, no coarseness crackles or wheezing, no cough present CHEST: Symmetrical movement, no accessory muscle use, good tidal volume. ABDOMEN: Soft, dull to percussion, no epigastric or abdominal tenderness, no organomegaly, no flank or suprapubic tenderness, active bowel tones, indwelling Vergara catheter. BACK: Nontender to palpation, no back pain on straight leg raise EXTREMITIES: moves all extremities, strength is 5/5 and symmetrical, no deformities or joint effusions no clubbing or cyanosis. NEUROLOGIC: AAO x4, no focal neurologic deficits, cranial nerves II-XII grossly intact, sensation intact to light touch, hearing grossly normal to speech. PSYCH: Good judgment, good insight, linear thought process, cooperative, appropriate with stable behavior Objective Labs Result Diagrams: 08/25/20 15:10 08/25/20 15:10 Labs: Laboratory Results - last 24 hr 08/25/20 08/25/20 08/25/20 15:10 15:10 15:10 WBC 10.3 RBC 4.69 Hgb 13.3 L Hct 39.1 L MCV 83.4 MCH 28.5 MCHC 34.2 RDW 14.7 Plt Count 219 Neut % (Auto) 87.8 H Lymph % (Auto) 3.2 L [place] % (Auto) 4.1 Eos % (Auto) 4.5 H Baso % (Auto) 0.4 Neut # (Auto) 9100 H Lymph # (Auto) 300 L [place] # (Auto) 400 Eos # (Auto) 500 H Baso # (Auto) 0 Sodium 124 L Potassium 4.4 Chloride 93 L Carbon Dioxide 20 L BUN 49 H Creatinine 4.80 H Estimated GFR 12.1 L BUN/Creatinine Ratio 10.2 Glucose 127 H Hemoglobin A1c Lactate Uric Acid Calcium 9.0 Magnesium 1.5 L Total Bilirubin 1.1 AST 41 ALT 39 Alkaline Phosphatase 82 NT-Pro-B Natriuret Pep Total Protein 7.0 Albumin 3.8 Globulin 3.2 Albumin/Globulin Ratio 1.2 Lipase 73 Urine Color Urine Appearance Urine pH Ur Specific [place] Urine Protein Urine Glucose (UA) Urine Ketones Urine Occult Blood Urine Nitrate Urine Bilirubin Urine Urobilinogen Ur Leukocyte Esterase Urine RBC Urine WBC Ur Squamous Epith Cells Amorphous Sediment Urine Bacteria Urine Mucus Ur Culture Indicated? Ur Random Sodium Urine Creatinine SARS-CoV-2 (PCR) 08/25/20 08/25/20 08/25/20 15:10 15:10 15:10 WBC RBC Hgb Hct MCV MCH MCHC RDW Plt Count Neut % (Auto) Lymph % (Auto) [place] % (Auto) Eos % (Auto) Baso % (Auto) Neut # (Auto) Lymph # (Auto) [place] # (Auto) Eos # (Auto) Baso # (Auto) Sodium Potassium Chloride Carbon Dioxide BUN Creatinine Estimated GFR BUN/Creatinine Ratio Glucose Hemoglobin A1c 5.5 Lactate Uric Acid 6.7 Calcium Magnesium Total Bilirubin AST ALT Alkaline Phosphatase NT-Pro-B Natriuret Pep 181 H Total Protein Albumin Globulin Albumin/Globulin Ratio Lipase Urine Color Urine Appearance Urine pH Ur Specific [place] Urine Protein Urine Glucose (UA) Urine Ketones Urine Occult Blood Urine Nitrate Urine Bilirubin Urine Urobilinogen Ur Leukocyte Esterase Urine RBC Urine WBC Ur Squamous Epith Cells Amorphous Sediment Urine Bacteria Urine Mucus Ur Culture Indicated? Ur Random Sodium Urine Creatinine SARS-CoV-2 (PCR) 08/25/20 08/25/20 08/25/20 15:23 16:10 16:10 WBC RBC Hgb Hct MCV MCH MCHC RDW Plt Count Neut % (Auto) Lymph % (Auto) [place] % (Auto) Eos % (Auto) Baso % (Auto) Neut # (Auto) Lymph # (Auto) [place] # (Auto) Eos # (Auto) Baso # (Auto) Sodium Potassium Chloride Carbon Dioxide BUN Creatinine Estimated GFR BUN/Creatinine Ratio Glucose Hemoglobin A1c Lactate Uric Acid Calcium Magnesium Total Bilirubin AST ALT Alkaline Phosphatase NT-Pro-B Natriuret Pep Total Protein Albumin Globulin Albumin/Globulin Ratio Lipase Urine Color Yellow Urine Appearance Sl cloudy Urine pH 5.0 Ur Specific [place] 1.025 Urine Protein Trace H Urine Glucose (UA) Negative Urine Ketones Negative Urine Occult Blood 3+ H Urine Nitrate Negative Urine Bilirubin Negative Urine Urobilinogen 0.2 Ur Leukocyte Esterase 2+ H Urine RBC 10-30/hpf H Urine WBC 10-30/hpf H Ur Squamous Epith Cells 1-5 /hpf Amorphous Sediment 1+ Urine Bacteria Few (2-10) H Urine Mucus 1+ H Ur Culture Indicated? Specimen cultured Ur Random Sodium 24 L Urine Creatinine 384.5 SARS-CoV-2 (PCR) Cancelled 08/25/20 08/25/20 18:20 18:45 WBC RBC Hgb Hct MCV MCH MCHC RDW Plt Count Neut % (Auto) Lymph % (Auto) [place] % (Auto) Eos % (Auto) Baso % (Auto) Neut # (Auto) Lymph # (Auto) [place] # (Auto) Eos # (Auto) Baso # (Auto) Sodium Potassium Chloride Carbon Dioxide BUN Creatinine Estimated GFR BUN/Creatinine Ratio Glucose Hemoglobin A1c Lactate 1.3 Uric Acid Calcium Magnesium Total Bilirubin AST ALT Alkaline Phosphatase NT-Pro-B Natriuret Pep Total Protein Albumin Globulin Albumin/Globulin Ratio Lipase Urine Color Urine Appearance Urine pH Ur Specific [place] Urine Protein Urine Glucose (UA) Urine Ketones Urine Occult Blood Urine Nitrate Urine Bilirubin Urine Urobilinogen Ur Leukocyte Esterase Urine RBC Urine WBC Ur Squamous Epith Cells Amorphous Sediment Urine Bacteria Urine Mucus Ur Culture Indicated? Ur Random Sodium Urine Creatinine SARS-CoV-2 (PCR) Negative Assessment & Plan Assessment & Plan narrative: This patient is a 70-year-old male with a past medical history of anemia, chronic kidney disease, gout, hypertension, hyperlipidemia hypertriglyceridemia in urinary transient with a past history obstructive uropathy, bladder outlet obstruction and urinary retention who presents to the emergency room sent in from the walk-in clinic with low blood pressure. On evaluation in the ER the patient is found to have urinary tract infection with acute kidney injury superimposed on chronic kidney disease with hyponatremia and dehydration. 1. Acute kidney injury superimposed on chronic kidney disease, present on admission, active. -patient has a previous history of obstructive nephropathy and chronic bladder outlet obstruction with chronic urinary retention and is status post TURP. -initial serum creatinine is 4.8, BUN is 41 with an EGFR of 12.1 with a calculated creatinine clearance of 22.31. Last creatinine was 1.44 on 03/24/2020. -CT of the abdomen pelvis: asymmetric left renal atrophy, prominent extrarenal pelvis is noted on the left, incomplete bladder distention with wall thickening. -renal ultrasound of 03/11/2019: Kidneys are normal in size. Right kidney measures 12.9 cm long; left kidney measures 9.2 cm long. Right renal cortical thickness is 1.1 cm; left renal cortical thickness is 0.9 cm. Renal cortical echotexture is normal. No hydronephrosis or nephrolithiasis. Lobular appearance of the left renal cortex. There is prominence of the left extrarenal pelvis. Significant postvoid residual estimated at 317 cc. Bladder diverticulum and trabeculation suggesting chronic bladder outlet obstruction. -Vergara catheter has been placed with difficulty initially with hematuria progressing to pale yellow urine. -FENa-0.2% consistent with prerenal etiology. Patient received 1 L of normal saline plus normal saline 250 an hour which is now decreased to 125 cc per hour. -additional considerations given to complain of exertional dyspnea and cardiovascular etiology. Will order a proBNP. -will renal dose medications and avoid renal toxic agents. 2. Acute cystitis, present on admission, active. -prior history of urinary outlet obstruction presenting today with decreased urinary output, -urinalysis: Cloudy urine, specific gravity 1.025, 3+ blood, 2+ leukocyte esterase, positive for wbc's and bacteria, negative nitrates. WBCs are 10.3 with left shift, neutrophils 9100 -CT identifies bladder wall thickening. -patient started on Rocephin 1 g IV daily 1st dose administered in the emergency department. 3. Hyponatremia secondary to extracellular fluid depletion, present on admission, active. -dehydration manifested by dry mucous membranes hypertension responsive to IV fluid and orthostasis, low sodium 124, acute kidney injury of 4.8. -patient received L of normal saline in the emergency department with normal saline at 250 cc an hour now decreased down to 125 cc/hour. Will encourage p.o. fluids -will recheck sodium level at 11:00 p.m. 4. Dyspnea on exertion, acute, present on admission, active. -patient reports worsening dyspnea with activity over the last 3 days with global fatigue. -patient without history of predisposing pulmonary disease, denies chest pain cough or wheezing. Breath sounds are diminished bibasilar. -will obtain a proBNP and chest x-ray to rule out potential role in pre renal kidney injury. 5. Acute maxillary sinusitis, present on admission, stable. -acute onset left sinus pain self-treated home with Sudafed. Mild tenderness to percussion. -patient reports poor oral intake of food or fluids stating need water tasted badly. -patient receiving Rocephin 1 g IV daily as above withdrawal co-treat sinus infection. 6. Gout, chronic, stable -due to renal function allopurinol decreased down to 200 mg daily and colchicine to 0.3 mg once daily. -will check uric acid level in the setting of impaired renal function. 7. Hyperlipidemia, chronic, stable. -will continue home regimen of atorvastatin 80 mg daily. -due to impaired renal function will hold fenofibrate. VTE prophylaxis: Enoxaparin 30 mg daily renal dose. IV fluid: Normal saline 125 cc/hour. Diet: [place], heart healthy l diet. Code status: Full code, patient designates his to be his surrogate decision maker. The patient is in mid to the hospital with acute cystitis, dehydration and acute renal failure on chronic kidney disease and hyponatremia requiring IV antibiotics and electrolyte repletion with cautious monitoring. The patient is admitted as inpatient with expected length of stay to be greater than 2 midnights. Scores GCS [place] coma scale eye opening: Spontaneous [place] coma scale verbal response: Orientated [place] coma scale motor response: Obey commands [place] coma scale total score: 15 Quality MIPS - Admit I confirm the patient?s Advance Care Plan is present, Code status is documented, Surrogate decision maker is in patient?s record [If Yes, STOP here]: Yes
[2020-08-25] MEDS: TAMSULOSIN 0.4 MG CAPSULE PO (21:23)
[2020-08-25] MEDS: DOCUSATE 100 MG CAPSULE PO (21:23)
--- NOTE | 2020-08-25 22:14 | PC.ADMIT ---
[facility] Admission Note: The patient,Lupillo Barrera,70 y/o, was given written information regarding hospital policies, unit procedures and contact persons. Patient's smoking status: Former smoker. Vital Signs - 8 hr 08/25/20 15:02 08/25/20 15:05 08/25/20 15:10 Temperature 99.5 F Pulse Rate 90 90 91 H Respiratory Rate 22 17 Blood Pressure 107/53 L 107/53 L Pulse Oximetry 95 92 96 08/25/20 15:15 08/25/20 15:20 08/25/20 15:25 Temperature Pulse Rate 91 H 87 89 Respiratory Rate 20 18 19 Blood Pressure Pulse Oximetry 96 96 94 08/25/20 15:30 08/25/20 15:32 08/25/20 15:35 Temperature Pulse Rate 86 89 85 Respiratory Rate 20 22 20 Blood Pressure 75/45 L 76/44 L 86/54 L Pulse Oximetry 95 96 95 08/25/20 15:40 08/25/20 15:45 08/25/20 15:50 Temperature Pulse Rate 84 85 84 Respiratory Rate 20 22 23 Blood Pressure 100/52 L 96/52 L 98/54 L Pulse Oximetry 98 97 97 08/25/20 15:55 08/25/20 16:00 08/25/20 16:05 Temperature Pulse Rate 86 85 94 H Respiratory Rate 25 H 23 23 Blood Pressure 96/49 L 106/54 L Pulse Oximetry 97 98 98 08/25/20 16:10 08/25/20 16:14 08/25/20 16:15 Temperature Pulse Rate 88 91 H 92 H Respiratory Rate 14 15 Blood Pressure 105/56 L 98/53 L Pulse Oximetry 96 97 96 08/25/20 16:20 08/25/20 16:25 08/25/20 16:30 Temperature Pulse Rate 84 84 84 Respiratory Rate 13 18 17 Blood Pressure 100/53 L 98/54 L 103/51 L Pulse Oximetry 96 95 96 08/25/20 16:35 08/25/20 16:40 08/25/20 16:45 Temperature Pulse Rate 86 85 83 Respiratory Rate 20 21 17 Blood Pressure 103/51 L 104/51 L Pulse Oximetry 95 97 96 08/25/20 16:50 08/25/20 16:55 08/25/20 17:07 Temperature Pulse Rate 85 82 88 Respiratory Rate 17 15 18 Blood Pressure 108/53 L Pulse Oximetry 96 95 95 08/25/20 17:10 08/25/20 17:15 08/25/20 17:20 Temperature Pulse Rate 85 84 85 Respiratory Rate 16 19 18 Blood Pressure Pulse Oximetry 96 95 96 08/25/20 17:25 08/25/20 17:30 08/25/20 17:35 Temperature Pulse Rate 84 84 85 Respiratory Rate 14 17 12 Blood Pressure 105/55 L Pulse Oximetry 94 97 95 08/25/20 17:40 08/25/20 17:45 08/25/20 17:50 Temperature Pulse Rate 85 82 82 Respiratory Rate 22 15 14 Blood Pressure Pulse Oximetry 96 93 92 08/25/20 17:55 08/25/20 18:00 08/25/20 18:05 Temperature Pulse Rate 85 86 85 Respiratory Rate 16 20 17 Blood Pressure 111/56 L Pulse Oximetry 95 97 96 08/25/20 18:10 08/25/20 18:15 08/25/20 18:20 Temperature Pulse Rate 88 87 87 Respiratory Rate 20 Blood Pressure Pulse Oximetry 95 08/25/20 18:25 08/25/20 18:30 08/25/20 18:35 Temperature Pulse Rate 86 86 87 Respiratory Rate 16 23 21 Blood Pressure Pulse Oximetry 93 97 96 08/25/20 18:40 08/25/20 18:45 08/25/20 18:50 Temperature Pulse Rate 86 85 89 Respiratory Rate 17 18 18 Blood Pressure Pulse Oximetry 96 96 98 08/25/20 18:55 08/25/20 19:00 08/25/20 19:05 Temperature Pulse Rate 86 87 84 Respiratory Rate 15 18 18 Blood Pressure Pulse Oximetry 97 96 96 08/25/20 20:22 Temperature 98.5 F Pulse Rate 89 Respiratory Rate 16 Blood Pressure 118/79 Pulse Oximetry 92 Patient was admitted to from ER by hospitalist group at 1915. Patient is A/Ox4, ambulatory, on RA, and has no complaints of pain. He has NS @ 125 ml/hr. SCDs and tele on. Belongings at bedside. Patient oriented to room and call light system, able to make needs known.
[2020-08-25 23:12] LABS: BUN Creatinine Ratio 14.3 (6-22); Blood Urea Nitrogen 54 mg/dL (9-20); Carbon Dioxide 23 mmol/L (22-32); Chloride 97 mmol/L (98-107); Glucose 144 mg/dL (80-110); HEMOLYSIS < 15 (0-50); Potassium 4.1 mmol/L (3.4-5.1); Sodium 127 mmol/L (137-145)
[2020-08-25] MEDS: MAGNESIUM OXIDE 400 MG TABLET PO (23:32)
[2020-08-26] VITALS (7 sets, daily range): BP systolic 103–120; BP diastolic 48–77; PULSE 87–98; RESP 16–18; TEMP 36.2–37.6; O2SAT 94–98
[2020-08-26 05:23] LABS: BUN Creatinine Ratio 16.8 (6-22); Blood Urea Nitrogen 54 mg/dL (9-20); Carbon Dioxide 22 mmol/L (22-32); Chloride 98 mmol/L (98-107); Estimated Glomerular Filt Rate 19.3 mL/min (>60); Glucose 114 mg/dL (80-110); HEMOLYSIS < 15 (0-50); Potassium 4.3 mmol/L (3.4-5.1); Sodium 127 mmol/L (137-145)
[2020-08-26] MEDS: SODIUM CHLORIDE 0.9% 1,000 ML 150 ML IV (06:28)
[2020-08-26] MEDS: TAMSULOSIN 0.4 MG CAPSULE PO ×2 (09:04→21:11)
[2020-08-26] MEDS: COLCHICINE 0.6 MG TABLET 0.3 MG PO (09:04)
[2020-08-26] MEDS: ATORVASTATIN 20 MG TABLET 80 MG PO (09:04)
[2020-08-26] MEDS: FINASTERIDE 5 MG TABLET PO (09:05)
[2020-08-26] MEDS: allopurinoL 100 MG TABLET 200 MG PO (09:05)
[2020-08-26] MEDS: allopurinoL 100 MG TABLET 150 MG PO (09:06)
[2020-08-26] MEDS: ENOXAPARIN 30 MG/0.3 ML SYRINGE SUBCUT (09:11)
--- NOTE | 2020-08-26 09:14 | CM.DANOTE ---
DCP: Case received, EMR reviewed and met with patient. Introduced self and role. Was able to obtain information from patient regarding his baseline activity status as well as some medical history prior to hospitalization. DCP assessment completed with information currently available. Patient is a 70 year old male who admitted yesterday afternoon to the care of the hosptalist team. PCP: Dr. Arenas. Payer: confirmed: [facility]. Patient came to the hospital via private vehicle secondary to having weakness. Patient has history of prostate issues, urinary retention, as well as gout. He is also under the care of urologist, Dr. Huertas. Patient holds current diagnosis of hyponatremia, UTI, Acute Kidney Injury, as well as urinary retention. Patient now has a clark in place. Met with patient in his room. He was sitting up in bed, alert and oriented. Patient resides in [place] with is spouse, Sandy. He is independent at his baseline and is employed at [employer]. P: DCP to continue to follow for any needs. Patient should be able to go home when he is medically stable. Yamileth Hurt RN/Safety Sitter
--- NOTE | 2020-08-26 12:27 | DIET.PN ---
Dietary Progress Note Assessment: 70y M c past medical history of anemia, chronic kidney disease, gout, hypertension, hyperlipidemia hypertriglyceridemia in urinary transient with a past history obstructive uropathy, bladder outlet obstruction and urinary retention who presents to the emergency room sent in from the walk-in clinic with low blood pressure referred to nutrition for ANGEL superimposed on CKD3 and obesity. Pt reports he has never received dietary education for CKD (CKD3 baseline labs x3y K+ 4.5, Cr 1.4 H, eGFR 40-50 L). Pts is not in room but does most shopping and cooking. Usual Day: B: coffee c [id number], granola bar L: sandwich from [employer] D: fish and rice, casseroles no current ETOH use HT: 172.7cm WT: 113.6kg BMI: 38.1 Labs: on admit Cr 4.8 HH, eGFR 12 L, K+ 4.4, CKD baseline labs x3y K+ 4.5, Cr 1.4 H, eGFR 40-50 L, A1c 5.5 Nutrition Diagnosis: altered nutrition related laboratory values (Cr, eGFR) r/t renal dysfunction and nutrition related knowledge deficit aeb pt reports not knowing how to eat for renal health, pt has had CKD3 x3y c baseline labs K+ 4.5, Cr 1.4 H, eGFR 40-50 L. Interventions: 1. Using [employer] Renal Plate worksheet introduced pt to renal diet. Used green and orange highlighter to emphasize foods to increase and foods to limit to support kidney health. Focused on preferred protein sources and amount, reducing dietary sodium intake, high vs low K+ foods, phosphorus in the diet (dairy vs food additive), and fluids. Diet Order: Renal EER: 70g PRO (0.6g/kg per renal), 2g Na limit, 2g K+ limit, avoid processed phos packaged foods Monitoring/Evaluations: [facility] outpatient renal nutrition consult if desires further education
[2020-08-26] MEDS: SODIUM CHLORIDE 0.9% 1,000 ML 100 ML IV (13:17)
[2020-08-26] MEDS: ACETAMINOPHEN 325 MG TABLET 650 MG PO (13:19)
--- NOTE | 2020-08-26 15:27 | P.PN_ITS ---
Subjective Subjective Date Patient Seen: 08/26/20 Interval history: Patient is a 70-year-old male who was admitted to the hospital for acute renal failure. He had decreased urine output, hypotension, and likely dehydration. He reports poor appetite. However with IV hydration his renal f unction has improved. His urine output is excellent. Patient still feels somewhat poorly. However he continues to make some progress. Exam Vital Signs (past 8 hours): - 08/26/20 08:20 08/26/20 12:00 Temperature 97.8 F 98.6 F Pulse Rate 93 H 98 H Respiratory Rate 18 18 Blood Pressure 120/59 L 103/77 Pulse Oximetry 97 98 Oxygen Delivery Method Room Air Oxygen Flow Rate 0 Narrative Exam Narrative: Ill-appearing male in no acute distress Lungs: Clear to auscultation Cardiac exam: Regular rate and rhythm normal S1-S2 Abdomen: Soft nontender nondistended Vergara catheter in place Extremities: No edema Objective Labs Result Diagrams: 08/25/20 15:10 08/26/20 04:45 Labs: Laboratory Results - last 24 hr 08/25/20 08/25/20 08/25/20 15:10 15:10 15:10 WBC 10.3 RBC 4.69 Hgb 13.3 L Hct 39.1 L MCV 83.4 MCH 28.5 MCHC 34.2 RDW 14.7 Plt Count 219 Neut % (Auto) 87.8 H Lymph % (Auto) 3.2 L [place] % (Auto) 4.1 Eos % (Auto) 4.5 H Baso % (Auto) 0.4 Neut # (Auto) 9100 H Lymph # (Auto) 300 L [place] # (Auto) 400 Eos # (Auto) 500 H Baso # (Auto) 0 Sodium 124 L Potassium 4.4 Chloride 93 L Carbon Dioxide 20 L BUN 49 H Creatinine 4.80 H Estimated GFR 12.1 L BUN/Creatinine Ratio 10.2 Glucose 127 H Hemoglobin A1c Lactate Uric Acid Calcium 9.0 Magnesium 1.5 L Total Bilirubin 1.1 AST 41 ALT 39 Alkaline Phosphatase 82 NT-Pro-B Natriuret Pep Total Protein 7.0 Albumin 3.8 Globulin 3.2 Albumin/Globulin Ratio 1.2 Lipase 73 Urine Color Urine Appearance Urine pH Ur Specific [place] Urine Protein Urine Glucose (UA) Urine Ketones Urine Occult Blood Urine Nitrate Urine Bilirubin Urine Urobilinogen Ur Leukocyte Esterase Urine RBC Urine WBC Ur Squamous Epith Cells Amorphous Sediment Urine Bacteria Urine Mucus Ur Culture Indicated? Ur Random Sodium Urine Creatinine SARS-CoV-2 (PCR) 08/25/20 08/25/20 08/25/20 15:10 15:10 15:10 WBC RBC Hgb Hct MCV MCH MCHC RDW Plt Count Neut % (Auto) Lymph % (Auto) [place] % (Auto) Eos % (Auto) Baso % (Auto) Neut # (Auto) Lymph # (Auto) [place] # (Auto) Eos # (Auto) Baso # (Auto) Sodium Potassium Chloride Carbon Dioxide BUN Creatinine Estimated GFR BUN/Creatinine Ratio Glucose Hemoglobin A1c 5.5 Lactate Uric Acid 6.7 Calcium Magnesium Total Bilirubin AST ALT Alkaline Phosphatase NT-Pro-B Natriuret Pep 181 H Total Protein Albumin Globulin Albumin/Globulin Ratio Lipase Urine Color Urine Appearance Urine pH Ur Specific [place] Urine Protein Urine Glucose (UA) Urine Ketones Urine Occult Blood Urine Nitrate Urine Bilirubin Urine Urobilinogen Ur Leukocyte Esterase Urine RBC Urine WBC Ur Squamous Epith Cells Amorphous Sediment Urine Bacteria Urine Mucus Ur Culture Indicated? Ur Random Sodium Urine Creatinine SARS-CoV-2 (PCR) 08/25/20 08/25/20 08/25/20 15:23 16:10 16:10 WBC RBC Hgb Hct MCV MCH MCHC RDW Plt Count Neut % (Auto) Lymph % (Auto) [place] % (Auto) Eos % (Auto) Baso % (Auto) Neut # (Auto) Lymph # (Auto) [place] # (Auto) Eos # (Auto) Baso # (Auto) Sodium Potassium Chloride Carbon Dioxide BUN Creatinine Estimated GFR BUN/Creatinine Ratio Glucose Hemoglobin A1c Lactate Uric Acid Calcium Magnesium Total Bilirubin AST ALT Alkaline Phosphatase NT-Pro-B Natriuret Pep Total Protein Albumin Globulin Albumin/Globulin Ratio Lipase Urine Color Yellow Urine Appearance Sl cloudy Urine pH 5.0 Ur Specific [place] 1.025 Urine Protein Trace H Urine Glucose (UA) Negative Urine Ketones Negative Urine Occult Blood 3+ H Urine Nitrate Negative Urine Bilirubin Negative Urine Urobilinogen 0.2 Ur Leukocyte Esterase 2+ H Urine RBC 10-30/hpf H Urine WBC 10-30/hpf H Ur Squamous Epith Cells 1-5 /hpf Amorphous Sediment 1+ Urine Bacteria Few (2-10) H Urine Mucus 1+ H Ur Culture Indicated? Specimen cultured Ur Random Sodium 24 L Urine Creatinine 384.5 SARS-CoV-2 (PCR) Cancelled 08/25/20 08/25/20 08/25/20 18:20 18:45 22:55 WBC RBC Hgb Hct MCV MCH MCHC RDW Plt Count Neut % (Auto) Lymph % (Auto) [place] % (Auto) Eos % (Auto) Baso % (Auto) Neut # (Auto) Lymph # (Auto) [place] # (Auto) Eos # (Auto) Baso # (Auto) Sodium 127 L Potassium 4.1 Chloride 97 L Carbon Dioxide 23 BUN 54 H Creatinine 3.78 H Estimated GFR 16.0 L BUN/Creatinine Ratio 14.3 Glucose 144 H Hemoglobin A1c Lactate 1.3 Uric Acid Calcium 8.0 L Magnesium Total Bilirubin AST ALT Alkaline Phosphatase NT-Pro-B Natriuret Pep Total Protein Albumin Globulin Albumin/Globulin Ratio Lipase Urine Color Urine Appearance Urine pH Ur Specific [place] Urine Protein Urine Glucose (UA) Urine Ketones Urine Occult Blood Urine Nitrate Urine Bilirubin Urine Urobilinogen Ur Leukocyte Esterase Urine RBC Urine WBC Ur Squamous Epith Cells Amorphous Sediment Urine Bacteria Urine Mucus Ur Culture Indicated? Ur Random Sodium Urine Creatinine SARS-CoV-2 (PCR) Negative 08/26/20 04:45 WBC RBC Hgb Hct MCV MCH MCHC RDW Plt Count Neut % (Auto) Lymph % (Auto) [place] % (Auto) Eos % (Auto) Baso % (Auto) Neut # (Auto) Lymph # (Auto) [place] # (Auto) Eos # (Auto) Baso # (Auto) Sodium 127 L Potassium 4.3 Chloride 98 Carbon Dioxide 22 BUN 54 H Creatinine 3.21 H Estimated GFR 19.3 L BUN/Creatinine Ratio 16.8 Glucose 114 H Hemoglobin A1c Lactate Uric Acid Calcium 8.0 L Magnesium Total Bilirubin AST ALT Alkaline Phosphatase NT-Pro-B Natriuret Pep Total Protein Albumin Globulin Albumin/Globulin Ratio Lipase Urine Color Urine Appearance Urine pH Ur Specific [place] Urine Protein Urine Glucose (UA) Urine Ketones Urine Occult Blood Urine Nitrate Urine Bilirubin Urine Urobilinogen Ur Leukocyte Esterase Urine RBC Urine WBC Ur Squamous Epith Cells Amorphous Sediment Urine Bacteria Urine Mucus Ur Culture Indicated? Ur Random Sodium Urine Creatinine SARS-CoV-2 (PCR) [facility] Medical History Anemia CKD (chronic kidney disease) Gout (~1994) Gout HTN (hypertension) Hypertriglyceridemia Pneumonia Urinary retention Surgical History Anesthesia History of carpal tunnel repair Meniscus degeneration Status post hemorrhoidectomy Status post rotator cuff repair Family History Father Heart disease Hypertension Diabetes mellitus Grandfather Heart disease Grandfather Heart disease Grandmother No problems noted. Mother Cancer Grandmother No problems noted. Sister No problems noted. Social History marital status: household members: spouse Smoking Status: Former smoker alcohol intake: current substance use type: does not use Assessment & Plan Assessment & Plan narrative: Acute kidney injury superimposed on chronic kidney disease, present on admission, active. -patient has a previous history of obstructive nephropathy and chronic bladder outlet obstruction with chronic urinary retention and is status post TURP. -initial serum creatinine is 4.8, BUN is 41 with an EGFR of 12.1 with a calculated creatinine clearance of 22.31. Last creatinine was 1.44 on 03/24/2020. -CT of the abdomen pelvis: asymmetric left renal atrophy, prominent extrarenal pelvis is noted on the left, incomplete bladder distention with wall thickening. -renal ultrasound of 03/11/2019: Kidneys are normal in size. Right kidney measures 12.9 cm long; left kidney measures 9.2 cm long. Right renal cortical thickness is 1.1 cm; left renal cortical thickness is 0.9 cm. Renal cortical echotexture is normal. No hydronephrosis or nephrolithiasis. Lobular appearance of the left renal cortex. There is prominence of the left extrarenal pelvis. Significant postvoid residual estimated at 317 cc. Bladder diverticulum and trabeculation suggesting chronic bladder outlet obstruction. -Vergara catheter has been placed with difficulty initially with hematuria progressing to pale yellow urine. -FENa-0.2% consistent with prerenal etiology. Patient received 1 L of normal saline plus normal saline 250 an hour which is now decreased to 125 cc per hour. -additional considerations given to complain of exertional dyspnea and cardiovascular etiology. Will order a proBNP. -will renal dose medications and avoid renal toxic agents. -renal function improving, acute renal failure likely related to lisinopril in the setting of dehydration in the setting of hypotension -will continue IV hydration, repeat labs in the morning, discontinue Vergara catheter tomorrow if urine output continues to improve 2. Acute cystitis, present on admission, active. -prior history of urinary outlet obstruction presenting today with decreased urinary output, -urinalysis: Cloudy urine, specific gravity 1.025, 3+ blood, 2+ leukocyte esterase, positive for wbc's and bacteria, negative nitrates. WBCs are 10.3 with left shift, neutrophils 9100 -CT identifies bladder wall thickening. -patient started on Rocephin 1 g IV daily 1st dose administered in the emergency department. -urine cultures negative, will discontinue antibiotic 3. Hyponatremia secondary to extracellular fluid depletion, present on admission, active. -dehydration manifested by dry mucous membranes hypertension responsive to IV fluid and orthostasis, low sodium 124, acute kidney injury of 4.8. -patient received L of normal saline in the emergency department with normal saline at 250 cc an hour now decreased down to 125 cc/hour. Will encourage p.o. fluids -will recheck sodium level at 11:00 p.m. -continue normal saline, will recheck labs in the morning 4. Dyspnea on exertion, acute, present on admission, active. -patient reports worsening dyspnea with activity over the last 3 days with global fatigue. -patient without history of predisposing pulmonary disease, denies chest pain cough or wheezing. Breath sounds are diminished bibasilar. -will obtain a proBNP and chest x-ray to rule out potential role in pre renal kidney injury. -no evidence of heart failure 5. Acute maxillary sinusitis, present on admission, stable. -acute onset left sinus pain self-treated home with Sudafed. Mild tenderness to percussion. -patient reports poor oral intake of food or fluids stating need water tasted badly. -patient receiving Rocephin 1 g IV daily as above withdrawal co-treat sinus infection. -will start oral Augmentin for sinusitis 6. Gout, chronic, stable -due to renal function allopurinol decreased down to 200 mg daily and colchicine to 0.3 mg once daily. -will check uric acid level in the setting of impaired renal function. 7. Hyperlipidemia, chronic, stable. -will continue home regimen of atorvastatin 80 mg daily. -due to impaired renal function will hold fenofibrate.
[2020-08-26 17:22] LABS: BUN Creatinine Ratio 23.6 (6-22); Blood Urea Nitrogen 48 mg/dL (9-20); Calcium 8.1 mg/dL (8.4-10.2); Carbon Dioxide 21 mmol/L (22-32); Chloride 101 mmol/L (98-107); Estimated Glomerular Filt Rate 32.7 mL/min (>60); Glucose 111 mg/dL (80-110); HEMOLYSIS < 15 (0-50); Potassium 4.3 mmol/L (3.4-5.1); Sodium 128 mmol/L (137-145)
[2020-08-26] MEDS: AMOXICILLIN/CLAV 500/125 MG 1 TAB PO (21:10)
[2020-08-26] MEDS: DOCUSATE 100 MG CAPSULE PO (21:11)
[2020-08-26] MEDS: MELATONIN 3 MG TABLET 6 MG PO (21:11)
[2020-08-27] MEDS: SODIUM CHLORIDE 0.9% 1,000 ML 100 ML IV (00:32)
[2020-08-27 05:13] VITALS: BP 119/66; PULSE 83; RESP 16; TEMP 36.4; O2SAT 95
[2020-08-27 08:00] VITALS: BP 123/67; PULSE 78; RESP 16; TEMP 36.2; O2SAT 98
[2020-08-27 09:16] LABS: BUN Creatinine Ratio 25.5 (6-22); Blood Urea Nitrogen 37 mg/dL (9-20); Carbon Dioxide 22 mmol/L (22-32); Chloride 106 mmol/L (98-107); Estimated Glomerular Filt Rate 48.3 mL/min (>60); Glucose 101 mg/dL (80-110); HEMOLYSIS < 15 (0-50); Potassium 4.4 mmol/L (3.4-5.1); Sodium 133 mmol/L (137-145)
--- NOTE | 2020-08-27 09:34 | PM.DS.1 ---
History of Present Illness History of Present Illness Date Patient Seen: 08/27/20 Time Patient Seen: 09:34 Chief complaint: Fatigue, SOB past couple of days Narrative: Per Dr. Rose, Mr. Lupillo Barrera is a 70-year-old male with a past medical history of anemia, chronic kidney disease, gout, hypertension, hyperlipidemia hypertriglyceridemia in urinary transient with a past history obstructive uropathy, bladder outlet obstruction and urinary retention who presents to the emergency room sent in from the walk-in clinic with low blood pressure. In the [facility] the patient had pressures in the mid 80s systolic with accompanying orthostatic dizziness and tachycardia 100. The patient states that on Sunday he developed sinus pain and pressure that became progressive. He self-treated with Tylenol at home and symptoms improved to Sudafed. He additionally reported feeling short of breath with exertion that seemed to improve on Sunday only to reoccur with associated generalized fatigue. The patient additionally reports decreased urinary voiding and denies burning urgency or frequency. He denies systemic symptoms of fevers or chills, headache or sore throat. He reports no chest pain or palpitations. He denies shortness of breath at rest only with activity with an underlying generalized fatigue. He has had no cough or wheezing. Denies epigastric or abdominal, flank or suprapubic pain. Endorses a history of Danielle problems having had a TURP and has had multiple renal ultrasounds. He indicates that he sees his urologist every 6 months in seems to have urinary retention of 2-300 each visit. He reports no bowel issues, no constipation or diarrhea. 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 Upon arrival the ER the patient has a temperature 99.5?, heart rate 90, blood pressure 107/53, respiratory rate of 22 saturating 95% on room air. While in the ER the patient [place] [address] without compensatory tachycardia. A CT of the abdomen pelvis finds bladder wall thickening with bilateral fat containing inguinal hernias, hepatomegaly with steatosis and marked left renal atrophy. Twelve lead EKG finds sinus rhythm at 91 biphasic P waves in V1 and V2 consistent with left atrial enlargement, no ectopy or block, no ST or T-wave changes, Q-waves noted inferiorly. On laboratory analysis the patient has white count of 10.3 with a elevated neutrophil count of 9100. His hemoglobin is 13.3 with hematocrit of 39.1. His chemistries are notable for hyponatremia 124 with a normal potassium 4.4 and a BUN of 49 and creatinine of 4.8. His EGFR is 12.1. His glucose is 127. His liver functions are all within normal limits. His spot urine sodium is 24 and urine creatinine is 384.5. Urinalysis: Cloudy, specific gravity 1.025, 3+ blood, 2+ leukocyte esterase WBCs 10-30, and positive for bacteria, negative nitrites. His COVID screening is negative. In the ER the patient responded well to of 1 L fluid bolus normal saline with improvement of pressure to the 110s. He had a Veragra catheter placed and has normal saline infusing at 250 mL per hour. 1 g of Rocephin IV use administered in the ER. The patient is admitted to the hospitalist service for UTI with acute kidney injury on chronic kidney disease. Discharge Providers Provider Date of admission: 08/25/20 17:57 Discharge Date: 08/27/20 Primary care physician: Alireza Arenas MD Consults: 08/25/20 19:54 Consult to Dietitian, Adult Routine Comment: Reason For Exam: Obesity, ANGEL superimposed on CKD 3 Consult to Discharge Planning Routine Comment: Discharge provider: Javier Avery DO Summary Hospital Course Discharge Diagnosis: Please see hospital course by problem list noted below. Hospital Course: 1. Acute on chronic renal failure, present on admission, active. -patient has a previous history of obstructive nephropathy and chronic bladder outlet obstruction with chronic urinary retention and is status post TURP. -initial serum creatinine was 4.8, improved to 1.43 during the course of his admission with IV fluids and relief of urinary obstruction. -CT of the abdomen pelvis: asymmetric left renal atrophy, prominent extrarenal pelvis is noted on the left, incomplete bladder distention with wall thickening. -renal ultrasound of 03/11/2019: Kidneys are normal in size. Right kidney measures 12.9 cm long; left kidney measures 9.2 cm long. Right renal cortical thickness is 1.1 cm; left renal cortical thickness is 0.9 cm. Renal cortical echotexture is normal. No hydronephrosis or nephrolithiasis. Lobular appearance of the left renal cortex. There is prominence of the left extrarenal pelvis. Significant postvoid residual estimated at 317 cc. Bladder diverticulum and trabeculation suggesting chronic bladder outlet obstruction. -Vergara catheter placed with difficulty initially with hematuria progressing to pale yellow urine. -FENa-0.2% consistent with prerenal etiology. Patient received 1 L of normal saline plus additional normal saline. -acute renal failure is likely in the setting of either volume depletion or chronic obstruction given history also in combination with Moe inhibitor use. -recommend outpatient follow up with his urologist in [facility], called their office day of discharge and they will have staff contact the patient. 2. Possible acute cystitis, present on admission, active. -urinalysis: Cloudy urine, specific gravity 1.025, 3+ blood, 2+ leukocyte esterase, positive for wbc's and bacteria, negative nitrates. WBCs are 10.3 with left shift, neutrophils 9100 -CT identifies bladder wall thickening which may be chronic. -patient started on Rocephin 1 g IV daily 1st dose administered in the emergency department. -urine cultures negative, antibiotics were discontinued but remains on augmentin as noted below. 3. Hyponatremia secondary to extracellular fluid depletion, present on admission, improved. -dehydration manifested by dry mucous membranes hypertension responsive to IV fluid and orthostasis. -patient received L of normal saline in the emergency department continued normal saline during admission. Improved sodium to 133 on day of discharge. 4. Dyspnea on exertion, acute, present on admission, active. -patient reported worsening dyspnea with activity over the last 3 days with global fatigue likely in setting of ANGEL. Improved with above therapies. -no evidence of heart failure on exam. 5. Acute maxillary sinusitis, present on admission, stable. -acute onset left sinus pain self-treated home with Sudafed. Mild tenderness to percussion. -patient reports poor oral intake of food or fluids stating need water tasted badly. -to continue augmentin upon discharge. Follow up with outpatient PCP recommended. 6. Gout, chronic, stable -due to renal function allopurinol decreased down to 200 mg daily and colchicine to 0.3 mg once daily on admission. Can resume home medications given improvement in renal function. 7. Hyperlipidemia, chronic, stable. -will continue home regimen of atorvastatin 80 mg daily. -due to impaired renal function held fenofibrate intitially, can resume on discharge. Time Spent with Patient Time spent: Greater than 30 minutes Exam Vital Signs (past 8 hours): - 08/27/20 05:13 08/27/20 08:00 Temperature 97.5 F L 97.2 F L Pulse Rate 83 78 Respiratory Rate 16 16 Blood Pressure 119/66 123/67 Pulse Oximetry 95 98 Oxygen Delivery Method Room Air Oxygen Flow Rate 0 Narrative Exam Narrative: GENERAL APPEARANCE: Well developed, well nourished, in no acute distress. SKIN: Inspection of the skin reveals no rashes, ulcerations or petechiae. HEENT: Normocephalic atraumatic, extraocular muscles are intact. NECK: Supple and symmetric. Trachea midlien. CHEST: Normal AP diameter and normal contour without any kyphoscoliosis. LUNGS: Auscultation of the lungs revealed no wheezes, rhonchi, or rales. CARDIOVASCULAR: There was a regular rate and rhythm without any murmurs, gallops, rubs. Peripheral pulses were 2+ and symmetric. ABDOMEN: Soft and nontender with normal bowel sounds. No ascites was noted. MUSCULOSKELETAL: There was no tenderness or effusions noted. Muscle strength and tone were normal. EXTREMITIES: No cyanosis, clubbing or edema. NEUROLOGIC: Alert and oriented x 3. Normal affect. No focal deficits. Objective Labs Result Diagrams: 08/25/20 15:10 08/27/20 08:50 Labs: Laboratory Results - last 24 hr 08/26/20 08/26/20 08/27/20 04:45 16:25 08:50 Sodium 128 L 133 L Potassium 4.3 4.3 4.4 Chloride 101 106 Carbon Dioxide 21 L 22 BUN 48 H 37 H Creatinine 2.03 H 1.45 H Estimated GFR 32.7 L 48.3 L BUN/Creatinine Ratio 23.6 H 25.5 H Glucose 111 H 101 Calcium 8.1 L 9.0 PFSH Medical History Anemia CKD (chronic kidney disease) Gout (~1994) Gout HTN (hypertension) Hypertriglyceridemia Pneumonia Urinary retention Surgical History Anesthesia History of carpal tunnel repair Meniscus degeneration Status post hemorrhoidectomy Status post rotator cuff repair Family History Father Heart disease Hypertension Diabetes mellitus Grandfather Heart disease Grandfather Heart disease Grandmother No problems noted. Mother Cancer Grandmother No problems noted. Sister No problems noted. Social History marital status: household members: spouse Smoking Status: Former smoker alcohol intake: current substance use type: does not use Discharge Plan Discharge Plan Patient Disposition: Home Provider Discharge Comment: You were admitted to the hospital with acute kidney injury. Possibly secondary to chronic obstruction. Vergara catheter was placed with continued improvement in kidney function. Recommend you follow up with your urologist, they will contact you to schedule a follow up. Follow up with your PCP as well for repeat labs in a few days, if creatinine continues to improve you can restart your lisinopril. Your urine also appeared infected, but cultures were negative. You were started on augmentin for sinusitis, please complete antibiotic therapy at home. Discharge orders & Medications Prescriptions: New amoxicillin-pot clavulanate 875-125 mg tablet 1 tab PO BID 6 Days Qty: 12 RF: 0 Continued tamsulosin [Flomax] 0.4 mg capsule 0.4 mg PO BID Qty: 60 RF: 3 allopurinol 300 mg tablet 300 mg PO DAILY Qty: 90 RF: 1 fenofibrate 160 mg tablet 160 mg PO DAILY Qty: 90 RF: 1 finasteride 5 mg tablet 5 mg PO DAILY RF: 0 flaxseed oil 1,000 mg Capsule 700 mg PO DAILY RF: 0 omega-3 fatty acids Capsule 1,000 mg PO DAILY RF: 0 CoQ-10 300 mg 300 mg PO DAILY RF: 0 atorvastatin [Lipitor] 80 mg tablet 80 mg PO DAILY RF: 0 oxiconazole [Oxistat] 1 % cream 1 bharath TP PRN PRN (Reason: Dry Skin) RF: 0 colchicine 0.6 mg tablet 0.6 mg PO BID RF: 0 glucosamine sulfate 750 mg Tablet 1,500 mg PO DAILY RF: 0 Discontinued lisinopril 20 mg tablet 20 mg PO DAILY RF: 0 Follow up/Referrals: Alireza Arenas MD [Primary Care Provider] - Diet/Activity/Treatments Diet: Diet as Tolerated Diet comment: As tolerated Catheter: 2-way Vergara Catheter comment: Please follow up with urology as noted above. Visit Report/Discharge Packet Instructions: Glomerular Filtration Rate, Acute Kidney Injury, Chronic Kidney Disease, Renal (Kidney) Disease Diet -- For People Not on Dialysis Discharge Data Primary Care Provider: Alireza Arenas
[2020-08-27] MEDS: FINASTERIDE 5 MG TABLET PO (09:39)
[2020-08-27] MEDS: allopurinoL 100 MG TABLET 150 MG PO (09:39)
[2020-08-27] MEDS: TAMSULOSIN 0.4 MG CAPSULE PO (09:40)
[2020-08-27] MEDS: AMOXICILLIN/CLAV 500/125 MG 1 TAB PO (09:40)
[2020-08-27] MEDS: SODIUM CHLORIDE 0.9% FLUSH 10 ML IV (09:40)
[2020-08-27] MEDS: ATORVASTATIN 20 MG TABLET 80 MG PO (09:41)
[2020-08-27] MEDS: COLCHICINE 0.6 MG TABLET 0.3 MG PO (09:43)
--- NOTE | 2020-08-27 12:03 | CM.DPC ---
DCP: continued: case discussed in Team Bedside Rounds. Pt is d/c'd to home setting the clark catheter in place and will follow up with urology as an out patient.
--- NOTE | 2020-08-27 15:19 | PC.NURSE ---
Pt is d/c today, Dr Avery wrote orders, ABX to [facility]. Pt to hold lisinopril until f/u with PCP after labs in a few days. Pt inadvertently pulled at clark while getting into shower, removed, and Pt voiding 2 x prior to d/c home. IV removed. Reviewed POC and follow up with PCP and urology. Education provided for diet and labs as well as CKF. WC to at ER entrance.
== END 2020-08-27 11:45 | disposition home or self-care (01) | DRG 683 ==
LOC: ED 15:42 → AC 17:57
PROVIDERS: Internal Medicine; Nurse Practitioner Adult Health; Admitting Provider Internal Medicine; Emergency Provider Emergency Medicine; Family Provider Family Medicine; PCP Family Medicine; Referring Provider Emergency Medicine; Visit Provider Internal Medicine
DX: N17.9 Acute kidney failure, unspecified (principal); E87.1 Hypo-osmolality and hyponatremia; E86.0 Dehydration; N30.90 Cystitis, unspecified without hematuria; N32.0 Bladder-neck obstruction; I95.9 Hypotension, unspecified; J01.00 Acute maxillary sinusitis, unspecified; R33.9 Retention of urine, unspecified; M10.9 Gout, unspecified; E78.5 Hyperlipidemia, unspecified; I12.9 Hypertensive chronic kidney disease with stage 1 through stage 4 chronic kidney disease, or unspecified chronic kidney disease; N18.9 Chronic kidney disease, unspecified; Z87.891 Personal history of nicotine dependence; Z20.822 Contact with and (suspected) exposure to COVID-19; K30 Functional dyspepsia; R43.2 Parageusia; R52 Pain, unspecified
CPT/HCPCS: 36415; 51701; 51798; 71045; 74176; 80048; 80053; 81001; 82570; 83036; 83605; 83690; 83735; 83880; 84300; 84550; 85025; 87040; 87086; 87635; 93005; 96361; 96365; 99284; 99285; C9803; J1650

== ENCOUNTER → 2020-09-02 09:24 | Outpatient (CLI) | payer OTHER, MEDICARE, SELFPAY ==
[2020-08-25 19:24] VITALS: BMI 36.5
[2020-09-02 10:21] LABS: Alanine Aminotransferase 86 IU/L (<50); Albumin 3.9 g/dL (3.5-5.0); Albumin Globulin Ratio 1.3 (1.0-2.8); Alkaline Phosphatase 89 U/L (38-126); Aspartate Aminotransferase 46 IU/L (17-59); BUN Creatinine Ratio 14.6 (6-22); Bilirubin Total 0.6 mg/dL (0.2-1.3); Blood Urea Nitrogen 19 mg/dL (9-20); Carbon Dioxide 27 mmol/L (22-32); Chloride 100 mmol/L (98-107); Estimated Glomerular Filt Rate 54.7 mL/min (>60); Globulin 3.1 g/dL (1.7-4.1); Glucose 85 mg/dL (80-110); HEMOLYSIS < 15 (0-50); Potassium 4.8 mmol/L (3.4-5.1); Sodium 135 mmol/L (137-145)
== END ==
PROVIDERS: Family Provider Family Medicine; PCP Family Medicine; Referring Provider Registered Nurse; Visit Provider Registered Nurse
DX: E87.1 Hypo-osmolality and hyponatremia (principal); I10 Essential (primary) hypertension; N17.9 Acute kidney failure, unspecified
CPT/HCPCS: 36415; 80053

== ENCOUNTER → 2020-11-04 10:26 | Outpatient (CLI) | payer OTHER, MEDICARE, SELFPAY ==
[2020-08-25 19:24] VITALS: BMI 36.5
[2020-11-04 11:26] LABS: BUN Creatinine Ratio 19.1 (6-22); Blood Urea Nitrogen 27 mg/dL (9-20); Carbon Dioxide 28 mmol/L (22-32); Chloride 100 mmol/L (98-107); Estimated Glomerular Filt Rate 49.8 mL/min (>60); Glucose 96 mg/dL (80-110); HEMOLYSIS < 15 (0-50); Potassium 4.7 mmol/L (3.4-5.1); Sodium 135 mmol/L (137-145)
== END ==
PROVIDERS: Family Provider Family Medicine; PCP Family Medicine; Referring Provider Family Medicine; Visit Provider Family Medicine
DX: E87.1 Hypo-osmolality and hyponatremia (principal); I10 Essential (primary) hypertension; N17.9 Acute kidney failure, unspecified
CPT/HCPCS: 36415; 80048

== ENCOUNTER → 2021-07-05 14:42 | Outpatient (CLI) | payer OTHER, MEDICARE, SELFPAY ==
[2020-08-25 19:24] VITALS: BMI 36.5
--- NOTE | 2021-07-05 14:47 | DI.US.S_ITS ---
PROCEDURE: US RENAL COMPLETE INDICATIONS: URINE RETENTION TECHNIQUE: Real-time scanning was performed of the kidneys and bladder, with image documentation. COMPARISON: [facility], CT, CT ABDOMEN PELVIS WO CON, 08/25/2020, 17:02. [facility], US, US RENAL COMPLETE, 03/11/2019, 12:11. FINDINGS: Kidneys: Right kidney measures 14.4 cm long; left kidney measures 10.4 cm long. Right renal cortical thickness is 1.8 cm; left renal cortical thickness is 0.8 cm. Lobulated contour of the left kidney. No hydronephrosis or nephrolithiasis. No suspicious solid mass lesions. Bladder: Pre-void bladder volume is 600 mL. Post-void residual is 300 mL. Pre-void images demonstrate no intraluminal masses or stones. Lobulated contour of the urinary bladder, which may reflect trabeculation. On pre-void images, a right ureteral jet is noted with color Doppler interrogation. (Of note, ureteral jets may not be detectable in up to 25% of cases due to insufficient differences in specific gravity between ureteral and bladder urine). Miscellaneous: No free pelvic fluid. IMPRESSION: 1. Left renal atrophy. 2. Residual postvoid volume as detailed above. Dictated by: Alexx Marcial M.D. on 07/05/2021 at 16:27 Approved by: Alexx Marcial M.D. on 07/05/2021 at 16:29
== END ==
PROVIDERS: Family Provider Family Medicine; PCP Family Medicine; Referring Provider Urology; Visit Provider Urology
DX: R33.9 Retention of urine, unspecified (principal); N26.1 Atrophy of kidney (terminal)
CPT/HCPCS: 76770

== ENCOUNTER → 2021-08-25 08:26 | Outpatient (CLI) | payer OTHER, MEDICARE, SELFPAY ==
[2020-08-25 19:24] VITALS: BMI 36.5
--- NOTE | 2021-08-25 08:29 | DI.RAD.S_ITS ---
PROCEDURE: XR SHOULDER RT MIN 2V INDICATIONS: chronic right shoulder pain TECHNIQUE: 3 views of the shoulder were acquired. COMPARISON: None. FINDINGS: Bones: No fractures or dislocations. No suspicious bony lesions. Visualized ribs appear intact. Mild acromioclavicular and glenohumeral joint osteoarthritis. Soft tissues: No suspicious soft tissue calcifications. IMPRESSION: Mild acromioclavicular and glenohumeral joint osteoarthritis. No acute osseous lesion. If symptoms and/or clinical suspicion for pathology persists, further assessment with repeat radiographs (7-10 days) or advanced imaging (e.g. CT, MRI or bone scan) should be considered. Dictated by: Yvonne Baird MD, PhD on 08/25/2021 at 11:06 Approved by: Yvonne Baird MD, PhD on 08/25/2021 at 11:10
== END ==
PROVIDERS: Family Provider Family Medicine; PCP Family Medicine; Referring Provider Family Medicine; Visit Provider Family Medicine
DX: M25.511 Pain in right shoulder (principal); M19.011 Primary osteoarthritis, right shoulder
CPT/HCPCS: 73030

== ENCOUNTER → 2021-11-11 15:09 | Outpatient (CLI) | payer OTHER, MEDICARE, SELFPAY ==
[2020-08-25 19:24] VITALS: BMI 36.5
== END ==
PROVIDERS: Family Provider Family Medicine; PCP Family Medicine; Visit Provider Pediatrics
DX: L03.90 Cellulitis, unspecified (principal)
CPT/HCPCS: 87081; 87797

== ENCOUNTER → 2022-08-11 09:02 | Outpatient (CLI) | payer OTHER, SELFPAY ==
[2020-08-25 19:24] VITALS: BMI 36.5
[2022-08-11 09:41] LABS: Add Manual Diff / Slide Review NO; Basophils Absolute Auto 100 /uL (0-100); Basophils Percent Auto 1.1 % (0-2); Eosinophils Absolute Auto 200 /uL (0-450); Eosinophils Percent Auto 4.7 % (2-4); Hematocrit 41.3 % (41-53); Lymphocytes Absolute Auto 1700 /uL (1100-4500); Lymphocytes Percent Auto 34.5 % (25-40); Mean Corpuscular HGB Conc 33.8 % (30-36); Mean Corpuscular Hemoglobin 28.2 PG (26-34); Mean Corpuscular Volume 83.2 fL (80-100); Monocytes Absolute Auto 500 /uL (0-900); Monocytes Percent Auto 9.2 % (3-14); Neutrophils Absolute Auto 2500 /uL (1500-7000); Neutrophils Percent Auto 50.5 % (50-75); Platelet Count 199 X10^3/uL (150-400); Red Blood Cell Count 4.96 X10^6/uL (4.5-5.9)
[2022-08-11 10:00] LABS: Alanine Aminotransferase 59 IU/L (<50); Albumin 4.5 g/dL (3.5-5.0); Albumin Globulin Ratio 1.4 (1.0-2.8); Alkaline Phosphatase 70 U/L (38-126); Aspartate Aminotransferase 47 IU/L (17-59); BUN Creatinine Ratio 19.5 (6-22); Bilirubin Total 0.7 mg/dL (0.2-1.3); Blood Urea Nitrogen 26 mg/dL (9-20); Carbon Dioxide 24 mmol/L (22-32); Chloride 100 mmol/L (98-107); Cholesterol 202 mg/dL (140-199); Estimated Glomerular Filt Rate 57 mL/min (>60); Globulin 3.2 g/dL (1.7-4.1); Glucose 101 mg/dL (80-110); HDL Cholesterol 37 mg/dL (40-60); HEMOLYSIS < 15 (0-50); LDL Cholesterol Calculated 112 mg/dL (<100); Potassium 4.5 mmol/L (3.4-5.1); Sodium 134 mmol/L (137-145); Total Protein 7.7 g/dL (6.3-8.2); Triglycerides 267 mg/dL (35-150)
[2022-08-11 10:26] LABS: Prostate Specific Antigen Scrn 0.091 ng/mL (0.1-4.0)
[2022-08-11 14:27] LABS: Creatinine Urine Random 85.8 mg/dL
[2022-08-11 14:34] LABS: Microalbumin Urine Random < 0.6 mg/dL (0-1.6)
== END ==
PROVIDERS: Family Provider Family Medicine; PCP Family Medicine; Referring Provider Family Medicine; Visit Provider Family Medicine
DX: E87.1 Hypo-osmolality and hyponatremia (principal); I10 Essential (primary) hypertension; N18.1 Chronic kidney disease, stage 1; Z12.5 Encounter for screening for malignant neoplasm of prostate
CPT/HCPCS: 36415; 80053; 80061; 82043; 82570; 84443; 85025; G0103

== ENCOUNTER → 2023-07-16 06:50 | Outpatient (CLI) | payer OTHER, SELFPAY ==
[2020-08-25 19:24] VITALS: BMI 36.5
[2023-07-16 08:24] LABS: Add Manual Diff / Slide Review NO; Basophils Absolute Auto 0 /uL (0-100); Basophils Percent Auto 1.3 % (0-2); Eosinophils Absolute Auto 200 /uL (0-450); Hematocrit 39.4 % (41-53); Hemoglobin 13.1 g/dL (13.5-17.5); Lymphocytes Absolute Auto 1300 /uL (1100-4500); Lymphocytes Percent Auto 38.8 % (25-40); Mean Corpuscular HGB Conc 33.2 % (30-36); Mean Corpuscular Hemoglobin 28.2 PG (26-34); Mean Corpuscular Volume 84.9 fL (80-100); Monocytes Absolute Auto 300 /uL (0-900); Neutrophils Absolute Auto 1500 /uL (1500-7000); Neutrophils Percent Auto 43.9 % (50-75); Platelet Count 176 X10^3/uL (150-400); Red Blood Cell Count 4.64 X10^6/uL (4.5-5.9); White Blood Cell Count 3.4 X10^3/uL (4.5-11.0)
[2023-07-16 08:38] LABS: Alanine Aminotransferase 24 IU/L (<50); Albumin 4.1 g/dL (3.5-5.0); Albumin Globulin Ratio 1.3 (1.0-2.8); Alkaline Phosphatase 57 U/L (38-126); Aspartate Aminotransferase 35 IU/L (17-59); BUN Creatinine Ratio 15.2 (6-22); Bilirubin Total 0.6 mg/dL (0.2-1.3); Blood Urea Nitrogen 21 mg/dL (9-20); Calcium 9.4 mg/dL (8.4-10.2); Carbon Dioxide 30 mmol/L (22-32); Chloride 103 mmol/L (98-107); Cholesterol 157 mg/dL (140-199); Estimated Glomerular Filt Rate 54 mL/min (>60); Globulin 3.1 g/dL (1.7-4.1); Glucose 90 mg/dL (80-110); HDL Cholesterol 49 mg/dL (40-60); HEMOLYSIS < 15 (0-50); LDL Cholesterol Calculated 94 mg/dL (<100); Potassium 4.1 mmol/L (3.4-5.1); Sodium 136 mmol/L (137-145); Total Protein 7.2 g/dL (6.3-8.2); Triglycerides 69 mg/dL (35-150)
== END ==
PROVIDERS: Family Provider Family Medicine; PCP Family Medicine; Referring Provider Family Medicine; Visit Provider Family Medicine
DX: E78.1 Pure hyperglyceridemia (principal); I10 Essential (primary) hypertension; N18.1 Chronic kidney disease, stage 1; Z79.899 Other long term (current) drug therapy
CPT/HCPCS: 36415; 80053; 80061; 84443; 85025

== ENCOUNTER → 2023-12-13 09:16 | Outpatient (CLI) | payer OTHER, SELFPAY ==
[2020-08-25 19:24] VITALS: BMI 36.5
[2023-12-13 10:07] LABS: Add Manual Diff / Slide Review NO; Basophils Absolute Auto 100 /uL (0-100); Eosinophils Absolute Auto 300 /uL (0-450); Eosinophils Percent Auto 5.9 % (2-4); Hematocrit 38.6 % (41-53); Hemoglobin 12.7 g/dL (13.5-17.5); Lymphocytes Absolute Auto 1500 /uL (1100-4500); Lymphocytes Percent Auto 30.5 % (25-40); Mean Corpuscular Hemoglobin 27.3 PG (26-34); Mean Corpuscular Volume 82.6 fL (80-100); Monocytes Absolute Auto 600 /uL (0-900); Monocytes Percent Auto 12.9 % (3-14); Neutrophils Absolute Auto 2500 /uL (1500-7000); Neutrophils Percent Auto 49.7 % (50-75); Platelet Count 224 X10^3/uL (150-400); Red Blood Cell Count 4.67 X10^6/uL (4.5-5.9); Red Cell Distribution Width 14.9 % (11.6-14.8)
[2023-12-13 10:34] LABS: Alanine Aminotransferase 20 IU/L (<50); Albumin 4.5 g/dL (3.5-5.0); Albumin Globulin Ratio 1.7 (1.0-2.8); Alkaline Phosphatase 78 U/L (38-126); Aspartate Aminotransferase 29 IU/L (17-59); BUN Creatinine Ratio 22.7 (6-22); Bilirubin Total 0.6 mg/dL (0.2-1.3); Blood Urea Nitrogen 29 mg/dL (9-20); Calcium 9.9 mg/dL (8.4-10.2); Carbon Dioxide 26 mmol/L (22-32); Chloride 102 mmol/L (98-107); Estimated Glomerular Filt Rate 59 mL/min (>60); Globulin 2.7 g/dL (1.7-4.1); Glucose 90 mg/dL (80-110); HEMOLYSIS < 15 (0-50); Potassium 4.6 mmol/L (3.4-5.1); Sodium 135 mmol/L (137-145); Total Protein 7.2 g/dL (6.3-8.2)
[2023-12-13 11:03] LABS: TSH w/ Reflex to FT4 0.99 uIU/mL (0.47-4.68)
[2023-12-13 11:04] LABS: Prostate Specific Antigen Scrn 0.071 ng/mL (0.1-4.0)
[2023-12-13 12:28] LABS: Microalbumin Urine Random < 0.6 mg/dL (0-1.6)
== END ==
PROVIDERS: Family Provider Family Medicine; PCP Family Medicine; Referring Provider Family Medicine; Visit Provider Family Medicine
DX: E78.1 Pure hyperglyceridemia (principal); Z12.5 Encounter for screening for malignant neoplasm of prostate; N18.9 Chronic kidney disease, unspecified; I10 Essential (primary) hypertension; E87.1 Hypo-osmolality and hyponatremia; Z00.00 Encounter for general adult medical examination without abnormal findings
CPT/HCPCS: 36415; 80053; 82043; 82570; 84443; 85025; G0103

== ENCOUNTER → 2024-09-12 08:34 | Outpatient (CLI) | payer OTHER, SELFPAY ==
[2020-08-25 19:24] VITALS: BMI 36.5
[2024-09-12 08:57] LABS: Add Manual Diff / Slide Review NO; Basophils Absolute Auto 0 /uL (0-100); Basophils Percent Auto 1.3 % (0-2); Eosinophils Absolute Auto 200 /uL (0-450); Eosinophils Percent Auto 5.7 % (2-4); Hematocrit 40.1 % (41-53); Hemoglobin 13.4 g/dL (13.5-17.5); Lymphocytes Absolute Auto 1600 /uL (1100-4500); Lymphocytes Percent Auto 46.4 % (25-40); Mean Corpuscular HGB Conc 33.4 % (30-36); Mean Corpuscular Hemoglobin 27.4 PG (26-34); Mean Corpuscular Volume 82.2 fL (80-100); Monocytes Absolute Auto 300 /uL (0-900); Monocytes Percent Auto 9.4 % (3-14); Neutrophils Absolute Auto 1300 /uL (1500-7000); Neutrophils Percent Auto 37.2 % (50-75); Platelet Count 196 X10^3/uL (150-400); Red Blood Cell Count 4.88 X10^6/uL (4.5-5.9); Red Cell Distribution Width 15.7 % (11.6-14.8); White Blood Cell Count 3.5 X10^3/uL (4.5-11.0)
[2024-09-12 09:12] LABS: Alanine Aminotransferase 31 IU/L (<50); Albumin 4.5 g/dL (3.5-5.0); Albumin Globulin Ratio 1.7 (1.0-2.8); Alkaline Phosphatase 62 U/L (38-126); Aspartate Aminotransferase 35 IU/L (17-59); BUN Creatinine Ratio 20.6 (6-22); Bilirubin Total 0.7 mg/dL (0.2-1.3); Blood Urea Nitrogen 29 mg/dL (9-20); Calcium 9.8 mg/dL (8.4-10.2); Carbon Dioxide 26 mmol/L (22-32); Chloride 103 mmol/L (98-107); Cholesterol 181 mg/dL (140-199); Estimated Glomerular Filt Rate 53 mL/min (>60); Globulin 2.7 g/dL (1.7-4.1); Glucose 100 mg/dL (70-99); HDL Cholesterol 42 mg/dL (40-60); HEMOLYSIS < 15 (0-50); LDL Cholesterol Calculated 99 mg/dL (<100); Potassium 4.5 mmol/L (3.4-5.1); Sodium 135 mmol/L (137-145); Total Protein 7.2 g/dL (6.3-8.2); Triglycerides 202 mg/dL (35-150)
[2024-09-12 09:42] LABS: Prostate Specific Antigen Scrn 0.069 ng/mL (0.1-4.0)
[2024-09-12 09:45] LABS: TSH w/ Reflex to FT4 1.29 uIU/mL (0.47-4.68)
[2024-09-12 10:04] LABS: Vitamin B12 659 pg/mL (239-931)
[2024-09-12 11:11] LABS: Creatinine Urine Random 78.58 mg/dL
[2024-09-12 11:17] LABS: Microalbumin Urine Random < 0.6 mg/dL (0-1.6)
[2024-09-13 04:10] LABS: Apolipoprotein B 83 mg/dL (<90)
== END ==
PROVIDERS: Family Provider Family Medicine; PCP Family Medicine; Referring Provider Family Medicine; Visit Provider Family Medicine
DX: E78.1 Pure hyperglyceridemia (principal); Z12.5 Encounter for screening for malignant neoplasm of prostate; N18.9 Chronic kidney disease, unspecified; E87.1 Hypo-osmolality and hyponatremia; R41.3 Other amnesia; I12.9 Hypertensive chronic kidney disease with stage 1 through stage 4 chronic kidney disease, or unspecified chronic kidney disease
CPT/HCPCS: 36415; 80053; 80061; 82043; 82172; 82570; 82607; 84443; 85025; G0103